=== PATIENT | female | born 1950 | race Caucasian/White ===

== ENCOUNTER 2024-07-24 20:55 | Inpatient (IN) | payer MEDICARE, OTHER ==
--- NOTE | 2024-07-24 23:51 | ERPHSYRPT ---
- History of Present Illness Time Seen by Provider: 07/24/24 21:57 Source: patient, family Exam Limitations: no limitations Patient Subjective Stated Complaint: family states that pt has a wound on her foot for approx 1 year from toe amputation that has not haled well. pt has open area to lt great toe area and since saturday has had a blister on the inner aspect of her lt foot that opened up today and is draining blood and white fluid. they were advised by hospice care nurse to come to the er. Triage Nursing Assessment: pt alert and oriented, answers questions approp. pt back to room per wheelchair and tansfers to stretcher with heavy assist of 1. pt has prosthetic to rt leg. drsg to lt foot. wound to lt great toe area with purulent drainage. open and raised area to medial lt mid foot with purulent drainage. 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 and few days ago a small blister appeared in the arch of the foot but gradually increasing in size and had some discharge. Patient is under hospice care and recently had wound culture done by wound clinic, patient is seen in [facility] ER today where she was prescribed Bactrim but patient wound culture showed she is not sensitive to any of the oral antibi otics but vancomycin, daptomycin and a couple of others. Hospice nurse sent her in this ER. Patient has no fever. She has not been taking most of her medication including insulin. She did notice some purulent drainage from the wound. Patient/family were unsure whether she wants to go for aggressive treatment or not and after prolonged discussion they decided to go for all workup. Allergies/Adverse Reactions: cefuroxime Allergy (Severe, Verified 07/25/24 00:16) roflumilast [From Daliresp] Allergy (Severe, Verified 07/25/24 00:16) Home Medications: Montelukast Sodium 10 mg [Singulair 10 MG] 10 mg PO DAILY 07/25/24 [History] Prednisone 5 mg [Deltasone 5 mg] 5 mg PO DAILY 07/25/24 [History] dilTIAZem HCL [Diltiazem 24Hr ER (Cd)] 120 mg PO DAILY 07/25/24 [History] Hx Tetanus, Diphtheria Vaccination/Date Given: No (unsure) Hx Influenza Vaccination/Date Given: Yes Hx Pneumococcal Vaccination/Date Given: No Immunizations Up to Date: No Travel Risk - International Travel Have you traveled outside of the country in past 3 weeks: No - Emerging Infectious Disease Are you exhibiting symptoms associated with any current EIDs: No - Review of Systems Constitutional: Fatigue, Weakness Eyes: No Symptoms Ears, Nose, & Throat: No Symptoms Respiratory: Cough, Dyspnea Cardiac: No Symptoms Genitourinary Symptoms: No Symptoms Musculoskeletal: Arthralgias Skin: Cellulitis, Induration, Skin Lesions Endocrine: No Symptoms Hematologic/Lymphatic: No Symptoms - Past Medical History Neurological History: Stroke Cardiac History: Arrhythmia, Coronary Artery Disease, Hypertension Respiratory History: CHF, COPD Endocrine Medical History: Diabetes Type II Musculoskeletal History: Arthritis Psycho-Social History: Anxiety Other Medical History: AAA- 6.2cm, afib, 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, raynauds - Past Surgical History Past Surgical History: Yes Female Surgical History: Section Other Surgical History: rt bka, lt mid foot amputation, vascular stent placement- lt external iliac artery - Social History Smoking Status: Former smoker Exposure to second hand smoke: No Drug Use: none - Social Determinants of Health Will the patient participate in the screening: Yes Do you worry about a steady place to live?: No Do you have any problems with any of the following?: No known problems In the past 12 months,have you had to go without utilities?: No Transportation Issues: No Has anyone in your support network made you feel unsafe?: No Have you or anyone in your house had to go without enough: No - Nursing Vital Signs Nursing Vital Signs: Initial Vital Signs Temperature 98.3 F 07/24/24 22:09 Pulse Rate 84 07/24/24 22:09 Respiratory Rate 18 07/24/24 22:09 Blood Pressure 181/76 07/24/24 22:09 O2 Sat by Pulse Oximetry 97 07/24/24 22:09 Pain Scale Pain Intensity 0 - Physical Exam General Appearance: no apparent distress, alert, cachetic Eye Exam: eyes nml inspection Ears, Nose, Throat Exam: normal ENT inspection Neck Exam: normal inspection, full range of motion Respiratory Exam: rhonchi, wheezing, No respiratory distress Cardiovascular Exam: regular rate/rhythm, normal heart sounds Gastrointestinal/Abdomen Exam: soft, normal bowel sounds, No tenderness Extremity Exam: normal range of motion, other (Amputations of all toes left foot, wound at the head of first metatarsal with slow oozing of serosanguineous. 2 x 2 cm area of swollen with some oozing purulent in the arch of foot. Diffuse erythema of the foot. Mild increased temperature. No tenderness.) Neurologic Exam: alert, oriented x 3, cooperative Skin Exam: normal color SpO2 Interpretation: O2 applied SpO2: 97 O2 Delivery: Nasal Cannula Ordered Tests: Medication Summary Discontinued Medications Generic Name Dose Route Start Last Admin Trade Name Freq PRN Reason Stop Dose Admin Acetaminophen 650 mg 07/25/24 04:06 Acetaminophen 650 Mg Supp.Rect ID 08/24/24 04:05 Q4H PRN PRN PAIN AND/OR FEVER Acetaminophen 650 mg 07/25/24 16:35 07/26/24 14:31 Acetaminophen 325 Mg Tablet PO 08/24/24 16:34 650 mg Q4H PRN PRN Administration PAIN AND/OR FEVER Hydrocodone Bitart/Acetaminophen 1 tablet 07/25/24 10:00 07/29/24 10:14 Hydrocodone/Acetamin 10-325 Mg Tablet PO 07/30/24 09:59 Not Given BID JEFF Albuterol Sulfate 4 puff 07/25/24 09:18 Albuterol Common Canister Inhaler 08/24/24 09:17 Q4H PRN PRN SHORTNESS OF BREATH/WHEEZING Albuterol Sulfate 2 puff 07/25/24 09:27 07/27/24 14:37 Albuterol Common Canister Inhaler 08/24/24 09:17 2 puff Q4H PRN PRN Administration SHORTNESS OF BREATH/WHEEZING Albuterol Sulfate 2.5 mg 07/25/24 19:00 07/29/24 06:54 Albuterol Sulfate 2.5 Mg/3 Ml [facility] 08/24/24 18:59 2.5 mg BIDRT JEFF Administration Albuterol/Ipratropium 3 ml 07/25/24 07:00 07/25/24 05:25 Ipratropium/Albuterol Sulfate 3 Ml Ampul.[facility] 08/24/24 06:59 3 ml Q6HRT JEFF Administration Bupivacaine HCl Confirm 07/25/24 06:43 Bupivacaine Hcl/Pf 150 Mg/30 Ml Vial Administered 07/25/24 06:44 Dose 150 mg .ROUTE .STK-MED ONE Bupivacaine HCl/Epinephrine Bitart Confirm 07/25/24 05:38 Bupivacaine Hcl/Epinephrine 10 Ml Vial Administered 07/25/24 05:39 Dose 30 ml .ROUTE .STK-MED ONE Device 1 07/27/24 09:30 07/27/24 13:41 Therapuetic Drug Level Monitor Each IJ 07/27/24 09:31 Not Given 1XONLY ONE Device 1 07/28/24 09:30 07/28/24 10:07 Therapuetic Drug Level Monitor Each IJ 07/28/24 09:31 Not Given 1XONLY ONE Dexmedetomidine/Sodium Chloride Confirm 07/25/24 06:24 Dexmedetomidine In 0.9 % Nacl 80 Mcg/20 Ml Vial Administered 07/25/24 06:25 Dose 80 mcg IV .STK-MED ONE Diltiazem HCl 120 mg 07/25/24 10:00 07/29/24 09:44 Diltiazem Hcl Cd 120 Mg Cap.Sr.24h PO 08/24/24 09:59 120 mg DAILY JEFF Administration Ferrous Sulfate 325 mg 07/27/24 10:00 07/29/24 09:44 Ferrous Sulfate 325 Mg Tablet PO 08/26/24 09:59 325 mg DAILY JEFF Administration Heparin Sodium (Beef Lung) 1,000 units 07/27/24 10:58 Heparin Lock Flush Pf 500 Units/5 Ml Syringe IV 07/27/24 10:59 .STK-MED ONE Heparin Sodium (Beef Lung) 500 units 07/27/24 19:21 07/29/24 04:30 Heparin Lock Flush Pf 500 Units/5 Ml Syringe PICC 08/26/24 19:20 500 units PRN PRN Administration IV PORT FLUSH Hydromorphone HCl 0.6 mg 07/25/24 14:01 Hydromorphone 1 Mg/1ml Inj IV 07/30/24 14:00 UD PRN PAIN Hydromorphone HCl 0.5 - 1 mg 07/25/24 14:09 07/28/24 18:38 Hydromorphone 1 Mg/1ml Inj IV 07/30/24 14:08 0.5 mg Q2HPRN PRN Administration PAIN 8 - 10 Vancomycin HCl 1 gm in 200 mls @ 125 mls/hr 07/24/24 23:31 07/25/24 00:25 Vancomycin 1 Gram/200 Ml Bag IV 07/25/24 01:06 125 mls/hr ONCE ONE 125 mls/hr Administration Piperacillin Sod/Tazobactam 100 mls @ 200 mls/hr 07/24/24 23:31 07/25/24 05:53 Sod 3.375 gm/ Sodium Chloride IV 07/25/24 00:00 Not Given STAT ONE Sodium Chloride Confirm 07/25/24 00:20 Sodium Chloride 0.9% Administered 07/25/24 00:21 Dose 100 mls @ ud .ROUTE .STK-MED ONE Vancomycin HCl Confirm 07/25/24 00:20 Vancomycin 1 Gram/200 Ml Bag Administered 07/25/24 00:21 Dose 1 gm in 200 mls @ ud IV .STK-MED ONE Meropenem 1 gm/ Sodium 100 mls @ 200 mls/hr 07/25/24 02:07 07/25/24 02:20 Chloride IV 07/25/24 02:36 200 mls/hr STAT ONE Administration Sodium Chloride 1,000 mls @ 100 mls/hr 07/25/24 02:15 07/25/24 02:20 Sodium Chloride 0.9% 1000 Ml IV 08/24/24 02:14 100 mls/hr .Q10H JEFF Administration Sodium Chloride Confirm 07/25/24 02:17 Sodium Chloride 100ml Mini-Bag Plus Administered 07/25/24 02:18 Dose 100 mls @ ud IV .STK-MED ONE Sodium Chloride 1,000 mls @ 50 mls/hr 07/25/24 04:15 07/28/24 16:30 Sodium Chloride 0.9% 1000 Ml IV 08/24/24 04:14 50 mls/hr .Q20H JEFF Administration Meropenem 500 mg/ Sodium 100 mls @ 200 mls/hr 07/25/24 14:00 Chloride IV 08/24/24 13:59 Q8HT JEFF Meropenem 1 gm/ Sodium 100 mls @ 200 mls/hr 07/25/24 10:00 07/29/24 09:45 Chloride IV 08/01/24 09:59 200 mls/hr Q12HT JEFF Administration Vancomycin HCl 500 mg/ Sodium 100 mls @ 125 mls/hr 07/25/24 09:45 07/25/24 11:29 Chloride IV 08/24/24 09:44 Not Given Q12H JEFF Vancomycin HCl 500 mg/ Sodium 100 mls @ 125 mls/hr 07/25/24 11:00 07/27/24 11:49 Chloride IV 07/28/24 13:00 125 mls/hr BID JEFF Administration Heparin Sodium/Sodium Chloride 500 mls @ ud 07/27/24 10:58 Heparin-Ns 1,000 Units/500 Ml IV 07/27/24 10:59 .STK-MED ONE Vancomycin HCl 500 mg/ Sodium 100 mls @ 100 mls/hr 07/27/24 18:00 07/29/24 09:45 Chloride IV 08/26/24 17:59 100 mls/hr Q8H JEFF Administration Insulin Human Lispro 0 unit 07/25/24 04:06 07/25/24 21:02 Insulin Lispro 1 Unit SQ 08/24/24 04:05 5 unit UD PRN Administration HYPERGLYCEMIA Insulin Human Lispro 0 unit 07/26/24 10:25 07/26/24 21:24 Insulin Lispro 1 Unit SQ 08/25/24 10:24 2 unit UD PRN Administration HYPERGLYCEMIA Lidocaine HCl Confirm 07/25/24 05:38 Lidocaine - Mpf 2% 5 Ml Vial Administered 07/25/24 05:39 Dose 5 ml .ROUTE .STK-MED ONE Lidocaine HCl Confirm 07/25/24 05:45 Lidocaine - Mpf 2% 5 Ml Vial Administered 07/25/24 05:46 Dose 5 ml .ROUTE .STK-MED ONE Lidocaine HCl Confirm 07/25/24 06:43 Lidocaine Hcl/Pf 1 % 30 Ml Pf Sdv Administered 07/25/24 06:44 Dose 30 ml IJ .STK-MED ONE Lorazepam mg 07/25/24 09:37 Lorazepam 2 Mg/1 Ml 2 Mg Vial SL 08/24/24 09:36 QID PRN PRN ANXIETY/AGITATION Lorazepam 0.25 mg 07/25/24 11:09 07/28/24 09:06 Lorazepam 0.5 Mg Tablet PO 08/24/24 11:08 0.25 mg Q6H PRN PRN Administration ANXIETY Meropenem Confirm 07/25/24 02:16 Meropenem 1 Gm Vial Administered 07/25/24 02:17 Dose 1 gm IV .STK-MED ONE Midazolam HCl Confirm 07/25/24 05:39 Midazolam Hcl 2 Mg/2 Ml Vial Administered 07/25/24 05:40 Dose 2 mg .ROUTE .STK-MED ONE Naloxone HCl 0.4 mg 07/25/24 09:38 Naloxone Hcl 0.4 Mg/Ml Ml IV 08/24/24 09:37 PRN PRN RESPIRATORY DEPRESSION Non-Formulary Medication 1 each 07/25/24 07:42 07/25/24 11:29 Pharmacy Dose Request: Vancomycin 1 Each IV 07/25/24 07:43 Not Given STAT STA Oxycodone/Acetaminophen 1.5 tab 07/25/24 14:08 07/29/24 09:44 Oxycodone Hcl/Apap 5 Mg/325 Mg Tablet PO 07/30/24 14:07 1.5 tab Q4HPRN PRN Administration PAIN 5-7 Pantoprazole Sodium 20 mg 07/27/24 10:00 07/29/24 09:44 Pantoprazole 20 Mg Tab PO 08/26/24 09:59 20 mg DAILY JEFF Administration Piperacillin Sod/Tazobactam Sod Confirm 07/25/24 00:18 Piperacillin/Tazobactam Sodium 3.375 Gm Vial Administered 07/25/24 00:19 Dose 3.375 gm IV .STK-MED ONE Potassium Bicarbonate 25 meq 07/25/24 09:45 07/25/24 16:40 Potassium Bicarbonate 25 Meq Tab PO 07/25/24 13:46 25 meq Q2H JEFF Administration Potassium Chloride 40 meq 07/29/24 05:55 07/29/24 06:05 Potassium Chloride Tab 10 Meq Tab PO 07/29/24 05:56 40 meq STAT ONE Administration Fluticasone/Salmeterol 2 puff 07/25/24 07:00 07/25/24 08:01 Fluticasone/Salmeterol 115/21 60 Puff Aer.W.Adap 08/24/24 06:59 Not Given BIDRT JEFF Tiotropium [place] 1 ea 07/26/24 10:00 07/29/24 06:54 Tiotropium [place] 18 Mcg/Cap Inhaler 08/25/24 09:59 1 ea DAILY JEFF Administration Lab/Rad Data: Laboratory Result Diagrams 07/25/24 08:40 07/25/24 08:40 Laboratory Results 07/25/24 07/25/24 07/25/24 Range/Units 08:40 08:40 08:40 WBC 12.7 H (3.98-10.04) x10^3/uL RBC 3.31 L (3.93-5.22) x10^6/uL Hgb 8.1 L (11.2-15.7) g/dL Hct 27.9 L (34.1-44.9) % MCV 84.3 (79.4-94.8) fL MCH 24.5 L (25.6-32.2) pg MCHC 29.0 L (32.2-35.5) g/dL RDW 17.3 H (11.7-14.4) % Plt Count 458 H (182-369) x10^3/uL MPV 9.5 (9.4-12.3) fL Gran % (34.0-71.1) % Immature Gran % (Auto) (0.001-0.429) % Nucleat RBC Rel Count (0.00-0.2) % Eos # (Auto) (0.04-0.36) x10^3/uL Immature Gran # (Auto) (0.001-0.031) x10^3u/L Absolute Lymphs (auto) (1.18-3.74) x10^3/uL Absolute Monos (auto) (0.24-0.86) x10^3/uL Absolute Nucleated RBC (0.00-0.012) x10^3u/L Lymphocytes % (19.3-51.7) % Monocytes % (4.7-12.5) % Eosinophils % (0.7-5.8) % Basophils % (0.1-1.2) % Absolute Granulocytes (1.56-6.13) x10^3/uL Basophils # (0.01-0.08) x10^3/uL Sodium 138 (135-145) mmol/L Potassium 3.4 L (3.5-5.1) mmol/L Chloride 107 (98-107) mmol/L Carbon Dioxide 25 (22-30) mmol/L Anion Gap 9.3 (5-15) MEQ/L BUN 6 L (7-17) mg/dL Creatinine 0.46 L (0.52-1.04) mg/dL Estimated GFR 99.1 ML/MIN Glucose 107 H (74-106) mg/dL Hemoglobin A1c 6.60 H (4.5-6.0) % Lactic Acid (0.4-2.0) Calcium 8.7 (8.4-10.2) mg/dL Total Bilirubin 0.40 (0.2-1.3) mg/dL AST 23 (14-36) U/L ALT 13 (0-35) U/L Alkaline Phosphatase 82 (38-126) U/L Creatine Kinase (30-135) U/L Serum Total Protein 6.0 L (6.3-8.2) g/dL Albumin 3.3 L (3.5-5.0) g/dL ABO Group Rh Factor Antibody Screen (NEGATIVE) Crossmatch (COMPATIBLE) 07/25/24 07/25/24 07/24/24 Range/Units 05:35 05:35 23:35 WBC (3.98-10.04) x10^3/uL RBC (3.93-5.22) x10^6/uL Hgb (11.2-15.7) g/dL Hct (34.1-44.9) % MCV (79.4-94.8) fL MCH (25.6-32.2) pg MCHC (32.2-35.5) g/dL RDW (11.7-14.4) % Plt Count (182-369) x10^3/uL MPV (9.4-12.3) fL Gran % (34.0-71.1) % Immature Gran % (Auto) (0.001-0.429) % Nucleat RBC Rel Count (0.00-0.2) % Eos # (Auto) (0.04-0.36) x10^3/uL Immature Gran # (Auto) (0.001-0.031) x10^3u/L Absolute Lymphs (auto) (1.18-3.74) x10^3/uL Absolute Monos (auto) (0.24-0.86) x10^3/uL Absolute Nucleated RBC (0.00-0.012) x10^3u/L Lymphocytes % (19.3-51.7) % Monocytes % (4.7-12.5) % Eosinophils % (0.7-5.8) % Basophils % (0.1-1.2) % Absolute Granulocytes (1.56-6.13) x10^3/uL Basophils # (0.01-0.08) x10^3/uL Sodium (135-145) mmol/L Potassium (3.5-5.1) mmol/L Chloride (98-107) mmol/L Carbon Dioxide (22-30) mmol/L Anion Gap (5-15) MEQ/L BUN (7-17) mg/dL Creatinine (0.52-1.04) mg/dL Estimated GFR ML/MIN Glucose (74-106) mg/dL Hemoglobin A1c (4.5-6.0) % Lactic Acid (0.4-2.0) Calcium (8.4-10.2) mg/dL Total Bilirubin (0.2-1.3) mg/dL AST (14-36) U/L ALT (0-35) U/L Alkaline Phosphatase (38-126) U/L Creatine Kinase 37 (30-135) U/L Serum Total Protein (6.3-8.2) g/dL Albumin (3.5-5.0) g/dL ABO Group AB Rh Factor POSITIVE Antibody Screen NEGATIVE (NEGATIVE) Crossmatch COMPATIBLE COMPATIBLE (COMPATIBLE) 07/24/24 07/24/24 07/24/24 Range/Units 23:35 23:35 23:29 WBC 16.0 H (3.98-10.04) x10^3/uL RBC 3.42 L (3.93-5.22) x10^6/uL Hgb 8.3 L (11.2-15.7) g/dL Hct 28.2 L (34.1-44.9) % MCV 82.5 (79.4-94.8) fL MCH 24.3 L (25.6-32.2) pg MCHC 29.4 L (32.2-35.5) g/dL RDW 17.4 H (11.7-14.4) % Plt Count 472 H (182-369) x10^3/uL MPV 10.2 (9.4-12.3) fL Gran % 75.1 H (34.0-71.1) % Immature Gran % (Auto) 0.5 H (0.001-0.429) % Nucleat RBC Rel Count 0.0 (0.00-0.2) % Eos # (Auto) 0.34 (0.04-0.36) x10^3/uL Immature Gran # (Auto) 0.08 H (0.001-0.031) x10^3u/L Absolute Lymphs (auto) 1.80 (1.18-3.74) x10^3/uL Absolute Monos (auto) 1.70 H (0.24-0.86) x10^3/uL Absolute Nucleated RBC 0.00 (0.00-0.012) x10^3u/L Lymphocytes % 11.3 L (19.3-51.7) % Monocytes % 10.6 (4.7-12.5) % Eosinophils % 2.1 (0.7-5.8) % Basophils % 0.4 (0.1-1.2) % Absolute Granulocytes 12.01 H (1.56-6.13) x10^3/uL Basophils # 0.06 (0.01-0.08) x10^3/uL Sodium 138 (135-145) mmol/L Potassium 3.5 (3.5-5.1) mmol/L Chloride 101 (98-107) mmol/L Carbon Dioxide 29 (22-30) mmol/L Anion Gap 10.7 (5-15) MEQ/L BUN 8 (7-17) mg/dL Creatinine 0.52 (0.52-1.04) mg/dL Estimated GFR 96.2 ML/MIN Glucose 118 H (74-106) mg/dL Hemoglobin A1c (4.5-6.0) % Lactic Acid 1.0 (0.4-2.0) Calcium 9.5 (8.4-10.2) mg/dL Total Bilirubin 0.40 (0.2-1.3) mg/dL AST 25 (14-36) U/L ALT 15 (0-35) U/L Alkaline Phosphatase 99 (38-126) U/L Creatine Kinase (30-135) U/L Serum Total Protein 6.7 (6.3-8.2) g/dL Albumin 3.6 (3.5-5.0) g/dL ABO Group Rh Factor Antibody Screen (NEGATIVE) Crossmatch (COMPATIBLE) - Progress Progress: improved Progress Note: 07/25/24 02:09 74 years old with multiple medical problems including chronic respiratory fail ure from COPD on 2 L oxygen, diabetes mellitus with below-knee amputation on the right and amputation of all toes on the left is evaluated for left foot swelling, wound and developing abscess. Workup showed white count of 16, chemistries fairly unremarkable She is given a dose of vancomycin and meropenem based on sensitivity reports from [facility]. I have obtained CT which showed finding consistent with cellulitis and small amount of air focus just proximal to toe amputation. No obvious gas gangrene. Discussed with Dr. Hood, reviewed history, workup and CT finding, agreed with continue with antibiotics and he will evaluate patient in few hours. Discussed with hospitalist Dr. Polo and patient is being admitted in consultation with podiatry. I have shared the results of workup with patient and family and plan of admission and possible surgical intervention which they understand and agree. Discussed with : Ariana, Other (Dr. Polo hospitalist and Dr. Hood podiatry) Counseled pt/family regarding: lab results, diagnosis, rad results Medical Desision Making - Independent Historian Additional History obtained from: Child - Discussion of managment Care discussed with:: specialist (Him Clerk Dr. Hood and hospitalist Dr. Polo) Reviewed:: Test results Agreed on:: Treatment plan, place in obs Will see patient: in hospital - Diagnostic Testing Diagnostic test were ordered, analyzed, and reviewed by me: Yes Radiological Interpretation: Reviewed by me, Teleradiologist Report - Risk of complications The pt has a mod risk of morbidity or mortality based on: Need for prescription drug management The pt has a high risk of morbidity or mortality based on: Need for major surgery in patient with known risk factors, Decision regarding hospitilization or escalation of hosp level of care - Departure Departure Disposition: Observation Clinical Impression: Cellulitis of foot associated with diabetes mellitus, Foot abscess, left Condition: Fair Critical Care Time: No
[2024-07-25] LABS: Absolute Neutrophil Ct (ANC) 12.01 x10^3/uL (1.56-6.13); BASOPHIL % 0.4 % (0.1-1.2); Basophil (Absolute #) 0.06 x10^3/uL (0.01-0.08); Eosinophil % 2.1 % (0.7-5.8); Eosinophil (Absolute #) 0.34 x10^3/uL (0.04-0.36); Hematocrit 28.2 % (34.1-44.9); Hemoglobin 8.3 g/dL (11.2-15.7); IMMATURE GRAN # 0.08 x10^3u/L (0.001-0.031); IMMATURE GRAN % 0.5 % (0.001-0.429); Lymphocytes % 11.3 % (19.3-51.7); Mean Cell Volume 82.5 fL (79.4-94.8); Mean Corpuscular Hemoglobin 24.3 pg (25.6-32.2); Mean Corpuscular Hgb Concent. 29.4 g/dL (32.2-35.5); Mean Platelet Volume 10.2 fL (9.4-12.3); Monocytes % 10.6 % (4.7-12.5); Neutrophil % 75.1 % (34.0-71.1); Platelet Count 472 x10^3/uL (182-369); Red Blood Count 3.42 x10^6/uL (3.93-5.22); Red Cell Distribution Width 17.4 % (11.7-14.4)
[2024-07-25] MEDS ORDERED: PIPERACILLIN/TAZOBACTAM IV ONE (00:18)
[2024-07-25] MEDS ORDERED: VANCOMYCIN 1 GRAM/200 ML BAG 1 GM/200 ML PIGGYBACK IV ONE (00:20)
[2024-07-25] MEDS ORDERED: Sodium Chloride 0.9% 0 ML ONE (00:20)
[2024-07-25] MEDS: VANCOMYCIN 1 GRAM/200 ML BAG 1 GM/200 ML PIGGYBACK IV ONE (00:25)
[2024-07-25 00:29] LABS: ALBUMIN 3.6 g/dL (3.5-5.0); ANION GAP 10.7 MEQ/L (5-15); BILIRUBIN,TOTAL 0.4 mg/dL (0.2-1.3); Calcium 9.5 mg/dL (8.4-10.2); Creatinine 1 0.52 mg/dL (0.52-1.04); EST GLOMERULAR FILTRATION RATE 96.2 ML/MIN; Potassium 3.5 mmol/L (3.5-5.1); Total Protein 6.7 g/dL (6.3-8.2)
--- NOTE | 2024-07-25 01:56 | XRAY ---
CLINICAL HISTORY: r/o gas gangrene osteomyelitis foot COMPARISON: None. TECHNIQUE: Contiguous axial CT images of lower extremity were obtained without intravenous contrast. Coronal and sagittal reconstructions were likewise performed and indicated to increase the sensitivity for detecting clinically relevant pathology. CT scan was performed according to ALARA (as low as reasonable achievable). FINDINGS: Visualized bones appears osteopenic and shows coarse trabecular pattern. Amputation of fifth toe just distal to distal diaphysis of fifth metatarsal. Amputation of 1st to 4th toe just distal to proximal midshaft of proximal phalanges. Diffuse edema is noted involving subcutaneous and intramuscular plane- suggest cellulitis. 5 X 1 cm hypodense lesion (likely collection) seen adjacent to the plantar aspect of great toe. Air focus also seen distally near amputation stump. No destructive osseous lesion. The visualized muscles and tendons appear grossly unremarkable. No cortical destruction to suggest osteomyelitis. No abscess formation. No significant joint effusion. There are no soft tissue masses. IMPRESSION: Visualized bones appears osteopenic and shows coarse trabecular pattern. Amputation of fifth toe just distal to distal diaphysis of fifth metatarsal. Amputation of 1st to 4th toe just distal to proximal midshaft of proximal phalanges. Diffuse edema is noted involving subcutaneous and intramuscular plane- suggest cellulitis. 5 X 1 cm hypodense lesion (likely collection) seen adjacent to the plantar aspect of great toe. Air focus also seen distally near amputation stump. Possibility of anaerobic infection/gas gangrene can not be ruled out. Advised clinical correlation and microbiological testing. Electronically Signed by: Serafin George MD. (07/25/2024 01:51:35 EST)
[2024-07-25] MEDS ORDERED: Merrem IV ONE (02:16)
[2024-07-25] MEDS ORDERED: Sodium Chloride 100ML MINI-BAG PLUS 100 ML IV ONE (02:17)
[2024-07-25] MEDS: Merrem 1 GM in Sodium Chloride 100ML MINI-BAG PLUS 100 ML IV ONE (02:20)
[2024-07-25] MEDS: Sodium Chloride 0.9% 1000 ML 1,000 ML IV SCH ×2 (02:20→09:37)
--- NOTE | 2024-07-25 02:35 | PCM.HP ---
History of Present Illness - Chief Complaint Chief Complaint: L foot cellulitis Date: 07/25/24 History of Present Illness: Ms. PEPPER is a 74 year old female with a past medical history significant for hypertension, diabetes with L foot ulcer status post multiple toe amputations, PAD status post R BKA and COPD/CHF under hospice services who was sent to the hospital by her hospice nurse after developing a blister on her left foot. She was evaluated by the ER and found to have significant cellulitis/abscess on CT left foot by the great toe with an elevated WBC of 16k. She was started on IV antibiotics with meropenem and vancomycin. Podiatry consult was obtained and she will be admitted for likely surgery. She is seen and examined via telehealth where she is resting in bed, lethargic but arousable. No fever/chills. No chest pain or shortness of breath. No nausea, vomiting or diarrhea. - Review of Systems Constitutional: No Fever, No Chills Eyes: No Vision Changes Ears, Nose, & Throat: No Sinus Drainage Respiratory: No Cough, No Orthopnea, No Short Of Breath Cardiac: No Chest Pain, No Edema, No Palpitations, No Syncope Abdominal/Gastrointestinal: No Abdominal Pain, No Nausea, No Vomiting, No Diarrhea Genitourinary Symptoms: No Dysuria, No Frequency, No Hematuria, No Urgency Musculoskeletal: No Myalgias Skin: Cellulitis, Rash Neurological: No Focal Weakness Psychological: No Suicidal Ideations Endocrine: No Polyuria, No Polydipsia Hematologic/Lymphatic: No Easy Bruising Medications & Allergies Home Medications: Home Medication List Montelukast Sodium 10 mg [Singulair 10 MG] 10 mg PO DAILY 07/25/24 [History Confirmed 07/25/24] Prednisone 5 mg [Deltasone 5 mg] 5 mg PO DAILY 07/25/24 [History Confirmed 07/25/24] dilTIAZem HCL [Diltiazem 24Hr ER (Cd)] 120 mg PO DAILY 07/25/24 [History Confirmed 07/25/24] Allergies/Adverse Reactions: Allergies Allergy/AdvReac Type Severity Reaction Status Date / Time cefuroxime Allergy Severe Verified 07/25/24 00:16 roflumilast [From Dalires] Allergy Severe Verified 07/25/24 00:16 - Past Medical History Neurological History: Stroke Cardiac History: Arrhythmia, Coronary Artery Disease, Hypertension Respiratory History: CHF, COPD Endocrine Medical History: Diabetes Type II Musculoskelatal History: Arthritis Pyscho-Social History: Anxiety Comment: AAA- 6.2cm, afib, 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, raynauds - Past Surgical History Past Surgical History: Yes Female Surgical History: Section Other Surgical History: rt bka, lt mid foot amputation, vascular stent placeme nt- lt external iliac artery - Social History Smoking Status: Former smoker Exposure to second hand smoke: No Alcohol: None Drug Use: none - Social Determinants of Health Will the patient participate in the screening: Yes Do you worry about a steady place to live?: No Do you have any problems with any of the following?: No known problems In the past 12 months,have you had to go without utilities?: No Have you or anyone in your house had to go without enough: No Transportation Issues: No Has anyone in your support network made you feel unsafe?: No - Physical Exam Vital Signs: Vital Signs - 24 hr Temp Pulse Resp BP Pulse Ox 07/25/24 02:14 97 07/25/24 02:00 90 18 127/75 98 07/25/24 01:00 94 H 18 134/78 98 07/25/24 00:00 83 18 147/66 98 07/24/24 23:15 84 22 170/84 96 07/24/24 22:09 98.3 F 84 18 181/76 97 General Appearance: no apparent distress Neurologic Exam: depressed mood/affect Ears, Nose, Throat Exam: dry mucous membranes Neck Exam: supple Respiratory Exam: No respiratory distress Cardiovascular Exam: regular rate/rhythm Gastrointestinal/Abdomen Exam: soft Extremity Exam: amputations, other Skin Exam: rash Results - Labs Lab/Micro Results: Lab Results-Last 24 Hours 07/24/24 07/24/24 07/24/24 Range/Units 23:29 23:35 23:35 WBC 16.0 H (3.98-10.04) x10^3/uL RBC 3.42 L (3.93-5.22) x10^6/uL Hgb 8.3 L (11.2-15.7) g/dL Hct 28.2 L (34.1-44.9) % MCV 82.5 (79.4-94.8) fL MCH 24.3 L (25.6-32.2) pg MCHC 29.4 L (32.2-35.5) g/dL RDW 17.4 H (11.7-14.4) % Plt Count 472 H (182-369) x10^3/uL MPV 10.2 (9.4-12.3) fL Gran % 75.1 H (34.0-71.1) % Immature Gran % (Auto) 0.5 H (0.001-0.429) % Nucleat RBC Rel Count 0.0 (0.00-0.2) % Eos # (Auto) 0.34 (0.04-0.36) x10^3/uL Immature Gran # (Auto) 0.08 H (0.001-0.031) x10^3u/L Absolute Lymphs (auto) 1.80 (1.18-3.74) x10^3/uL Absolute Monos (auto) 1.70 H (0.24-0.86) x10^3/uL Absolute Nucleated RBC 0.00 (0.00-0.012) x10^3u/L Lymphocytes % 11.3 L (19.3-51.7) % Monocytes % 10.6 (4.7-12.5) % Eosinophils % 2.1 (0.7-5.8) % Basophils % 0.4 (0.1-1.2) % Absolute Granulocytes 12.01 H (1.56-6.13) x10^3/uL Basophils # 0.06 (0.01-0.08) x10^3/uL Sodium 138 (135-145) mmol/L Potassium 3.5 (3.5-5.1) mmol/L Chloride 101 (98-107) mmol/L Carbon Dioxide 29 (22-30) mmol/L Anion Gap 10.7 (5-15) MEQ/L BUN 8 (7-17) mg/dL Creatinine 0.52 (0.52-1.04) mg/dL Estimated GFR 96.2 ML/MIN Glucose 118 H (74-106) mg/dL Lactic Acid 1.0 (0.4-2.0) Calcium 9.5 (8.4-10.2) mg/dL Total Bilirubin 0.40 (0.2-1.3) mg/dL AST 25 (14-36) U/L ALT 15 (0-35) U/L Alkaline Phosphatase 99 (38-126) U/L Creatine Kinase (30-135) U/L Serum Total Protein 6.7 (6.3-8.2) g/dL Albumin 3.6 (3.5-5.0) g/dL 07/24/24 Range/Units 23:35 WBC (3.98-10.04) x10^3/uL RBC (3.93-5.22) x10^6/uL Hgb (11.2-15.7) g/dL Hct (34.1-44.9) % MCV (79.4-94.8) fL MCH (25.6-32.2) pg MCHC (32.2-35.5) g/dL RDW (11.7-14.4) % Plt Count (182-369) x10^3/uL MPV (9.4-12.3) fL Gran % (34.0-71.1) % Immature Gran % (Auto) (0.001-0.429) % Nucleat RBC Rel Count (0.00-0.2) % Eos # (Auto) (0.04-0.36) x10^3/uL Immature Gran # (Auto) (0.001-0.031) x10^3u/L Absolute Lymphs (auto) (1.18-3.74) x10^3/uL Absolute Monos (auto) (0.24-0.86) x10^3/uL Absolute Nucleated RBC (0.00-0.012) x10^3u/L Lymphocytes % (19.3-51.7) % Monocytes % (4.7-12.5) % Eosinophils % (0.7-5.8) % Basophils % (0.1-1.2) % Absolute Granulocytes (1.56-6.13) x10^3/uL Basophils # (0.01-0.08) x10^3/uL Sodium (135-145) mmol/L Potassium (3.5-5.1) mmol/L Chloride (98-107) mmol/L Carbon Dioxide (22-30) mmol/L Anion Gap (5-15) MEQ/L BUN (7-17) mg/dL Creatinine (0.52-1.04) mg/dL Estimated GFR ML/MIN Glucose (74-106) mg/dL Lactic Acid (0.4-2.0) Calcium (8.4-10.2) mg/dL Total Bilirubin (0.2-1.3) mg/dL AST (14-36) U/L ALT (0-35) U/L Alkaline Phosphatase (38-126) U/L Creatine Kinase 37 (30-135) U/L Serum Total Protein (6.3-8.2) g/dL Albumin (3.5-5.0) g/dL - Radiology Impressions Radiology Exams & Impressions: Radiology Procedures Category Date Time Status LOWER EXTREMITY WO CONTRAST [CT] Stat Exams 07/24/24 23:29 Completed Assessment/Plan (1) Foot abscess, left Current Visit: Yes Status: Acute Assessment & Plan: CT scan demonstrates likely abscess next to L great toe 1. Admit to hospital 2. Start antibiotics with meropenem/Vanco 3. Podiatry consult 4. NPO for possible surgery 5. Pain control 6. DVT/GI prophylaxis Code(s): L02.612 - CUTANEOUS ABSCESS OF LEFT FOOT (2) Diabetic foot ulcer Current Visit: Yes Status: Acute Assessment & Plan: Diabetic foot ulcer 1. ADA diet when able to eat 2. FSBS q6 while NPO with SSI 3. Monitor blood sugars Code(s): E11.621 - TYPE 2 DIABETES MELLITUS WITH FOOT ULCER; L97.509 - NON- PRESSURE CHRONIC ULCER OTH PRT UNSP FOOT W UNSP SEVERITY (3) PAD (peripheral artery disease) Current Visit: Yes Status: Acute Assessment & Plan: Status post R BKA and likely contributing to L foot ulcer 1. Check arterial doppler LLE Code(s): I73.9 - PERIPHERAL VASCULAR DISEASE, UNSPECIFIED (4) Essential (primary) hypertension Current Visit: Yes Status: Acute Assessment & Plan: Blood pressure under reasonable control 1. Continue bp meds 2. Low Na diet 3. Monitor blood pressure readings Code(s): I10 - ESSENTIAL (PRIMARY) HYPERTENSION (5) COPD (chronic obstructive pulmonary disease) Current Visit: Yes Status: Acute Qualifiers: COPD type: unspecified COPD Qualified Code(s): J44.9 - Chronic obstructive pulmonary disease, unspecified Assessment & Plan: COPD stable 1. Duonebs 2. Monitor O2 sats Telemedicine Encounter - Telemedicine Encounter Telemedicine Encounter: "The entirety of this encounter was performed via Telemedicine" This visit was performed using real-time audio and video connection between my location and thepatients locationwith the assistance of a surrogateat the patients location. Written or verbal consent was obtained from the patient/guardian to perform this visit usingsynchronoustelemedicine technology. Any patient questions regarding the telemedicine interaction were answered.
[2024-07-25] MEDS ORDERED: FEVERALL 650 MG PR PRN (04:06)
--- NOTE | 2024-07-25 04:13 | PCM.CONS ---
Podiatry HPI - Consult Date of Consultation Date: 07/24/24 Reason for Consult: Gas gangrene, Acute on Chronic Osteomyelitis, DM Type II foot ulceration. 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 Patient was attending routine wound care through [facility]. A small blister appeared in the arch of the foot but gradually increasing in size and had some discharge over the course of the last several days.She did notice some purulent drainage from the wound. Patient recently had wound culture done by wound clinic, patient is seen in [facility] ER today where she was prescribed Bactrim but patient wound culture showed she is not sensitive to any of the oral antibiotics but vancomycin and daptomycin. Hospice nurse sent her in this ER. Patient has no fever. She has not been taking most of her medication including insulin. Patient is under hospice care however this was revoked by coming to the emergency department for treatment. Patient/family were unsure whether she wants to go for aggressive treatment or not and after prolonged discussion they decided to go for all workup. Medications & Allergies Home Medications: Home Medication List Hydrocodone/Acetaminophen [Stacy 10-325 mg] 1 tablet PO BID 07/25/24 [History Confirmed 07/25/24] LORazepam [Ativan] 0.5 ml SL Q2H/PRN PRN 07/25/24 [History Confirmed 07/25/24] Montelukast Sodium 10 mg [Singulair 10 MG] 10 mg PO DAILY 07/25/24 [History Confirmed 07/25/24] Prednisone 5 mg [Deltasone 5 mg] 5 mg PO DAILY 07/25/24 [History Confirmed 07/25/24] dilTIAZem HCL [Diltiazem 24Hr ER (Cd)] 120 mg PO DAILY 07/25/24 [History Confirmed 07/25/24] Allergies/Adverse Reactions: Allergies Allergy/AdvReac Type Severity Reaction Status Date / Time cefuroxime Allergy Severe Verified 07/25/24 00:16 roflumilast [From Daliresp] Allergy Severe Verified 07/25/24 00:16 - Past Medical History Neurological History: Stroke Cardiac History: Arrhythmia, Coronary Artery Disease, Hypertension Respiratory History: CHF, COPD Endocrine Medical History: Diabetes Type II Musculoskelatal History: Arthritis Pyscho-Social History: Anxiety Comment: AAA- 6.2cm, afib, 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, raynauds - Past Surgical History Past Surgical History: Yes Female Surgical History: Section Other Surgical History: rt bka, lt mid foot amputation, vascular stent placement- lt external iliac artery - Social History Smoking Status: Former smoker Exposure to second hand smoke: No Alcohol: None Drug Use: none - Social Determinants of Health Will the patient participate in the screening: Yes Do you worry about a steady place to live?: No Do you have any problems with any of the following?: No known problems In the past 12 months,have you had to go without utilities?: No Have you or anyone in your house had to go without enough: No Transportation Issues: No Has anyone in your support network made you feel unsafe?: No Physical Exam - General General Appearance: no apparent distress, cachetic - Neuro Neurologic: Epicritic and protopathic (absent) - Vascular Peripheral Pulses: Posterior tibialis: 1+, Dorsalis-Pedis: 1+ Capillary Refill Time: > 3 seconds Hair Growth: Symmetrical and Bilateral Varicosities: Negtive Edema: None Skin: Supple, not atrophic (Wounds distal 1st metatarsal ( hallux amputation site) Plantar aspect of arch large wound with purulence and proudflesh. raised margins by approximately 1 cm in purulent granuloma with fluctuance noted on palpation. No creptiation of underlying skin.) Skin Temperature: Warm to touch - Narrative Narrative Physical Exam: Podiatry Physical Exam Results - Labs Lab/Micro Results: Lab Results-Last 24 Hours 07/24/24 07/24/24 07/24/24 Range/Units 23:29 23:35 23:35 WBC 16.0 H (3.98-10.04) x10^3/uL RBC 3.42 L (3.93-5.22) x10^6/uL Hgb 8.3 L (11.2-15.7) g/dL Hct 28.2 L (34.1-44.9) % MCV 82.5 (79.4-94.8) fL MCH 24.3 L (25.6-32.2) pg MCHC 29.4 L (32.2-35.5) g/dL RDW 17.4 H (11.7-14.4) % Plt Count 472 H (182-369) x10^3/uL MPV 10.2 (9.4-12.3) fL Gran % 75.1 H (34.0-71.1) % Immature Gran % (Auto) 0.5 H (0.001-0.429) % Nucleat RBC Rel Count 0.0 (0.00-0.2) % Eos # (Auto) 0.34 (0.04-0.36) x10^3/uL Immature Gran # (Auto) 0.08 H (0.001-0.031) x10^3u/L Absolute Lymphs (auto) 1.80 (1.18-3.74) x10^3/uL Absolute Monos (auto) 1.70 H (0.24-0.86) x10^3/uL Absolute Nucleated RBC 0.00 (0.00-0.012) x10^3u/L Lymphocytes % 11.3 L (19.3-51.7) % Monocytes % 10.6 (4.7-12.5) % Eosinophils % 2.1 (0.7-5.8) % Basophils % 0.4 (0.1-1.2) % Absolute Granulocytes 12.01 H (1.56-6.13) x10^3/uL Basophils # 0.06 (0.01-0.08) x10^3/uL Sodium 138 (135-145) mmol/L Potassium 3.5 (3.5-5.1) mmol/L Chloride 101 (98-107) mmol/L Carbon Dioxide 29 (22-30) mmol/L Anion Gap 10.7 (5-15) MEQ/L BUN 8 (7-17) mg/dL Creatinine 0.52 (0.52-1.04) mg/dL Estimated GFR 96.2 ML/MIN Glucose 118 H (74-106) mg/dL Lactic Acid 1.0 (0.4-2.0) Calcium 9.5 (8.4-10.2) mg/dL Total Bilirubin 0.40 (0.2-1.3) mg/dL AST 25 (14-36) U/L ALT 15 (0-35) U/L Alkaline Phosphatase 99 (38-126) U/L Creatine Kinase (30-135) U/L Serum Total Protein 6.7 (6.3-8.2) g/dL Albumin 3.6 (3.5-5.0) g/dL 07/24/24 Range/Units 23:35 WBC (3.98-10.04) x10^3/uL RBC (3.93-5.22) x10^6/uL Hgb (11.2-15.7) g/dL Hct (34.1-44.9) % MCV (79.4-94.8) fL MCH (25.6-32.2) pg MCHC (32.2-35.5) g/dL RDW (11.7-14.4) % Plt Count (182-369) x10^3/uL MPV (9.4-12.3) fL Gran % (34.0-71.1) % Immature Gran % (Auto) (0.001-0.429) % Nucleat RBC Rel Count (0.00-0.2) % Eos # (Auto) (0.04-0.36) x10^3/uL Immature Gran # (Auto) (0.001-0.031) x10^3u/L Absolute Lymphs (auto) (1.18-3.74) x10^3/uL Absolute Monos (auto) (0.24-0.86) x10^3/uL Absolute Nucleated RBC (0.00-0.012) x10^3u/L Lymphocytes % (19.3-51.7) % Monocytes % (4.7-12.5) % Eosinophils % (0.7-5.8) % Basophils % (0.1-1.2) % Absolute Granulocytes (1.56-6.13) x10^3/uL Basophils # (0.01-0.08) x10^3/uL Sodium (135-145) mmol/L Potassium (3.5-5.1) mmol/L Chloride (98-107) mmol/L Carbon Dioxide (22-30) mmol/L Anion Gap (5-15) MEQ/L BUN (7-17) mg/dL Creatinine (0.52-1.04) mg/dL Estimated GFR ML/MIN Glucose (74-106) mg/dL Lactic Acid (0.4-2.0) Calcium (8.4-10.2) mg/dL Total Bilirubin (0.2-1.3) mg/dL AST (14-36) U/L ALT (0-35) U/L Alkaline Phosphatase (38-126) U/L Creatine Kinase 37 (30-135) U/L Serum Total Protein (6.3-8.2) g/dL Albumin (3.5-5.0) g/dL - Radiology Impressions Radiology Exams & Impressions: Radiology Procedures Category Date Time Status LOWER EXTREMITY WO CONTRAST [CT] Stat Exams 07/24/24 23:29 Completed - Other Procedures and Tests Respiratory Therapy 07/25/24 03:57 Oxygen Nasal Cannula 2 lpm Respiratory Therapy Consult ONCE Assessment/Plan (1) Acute on chronic osteomyelitis Current Visit: Yes Status: Acute Assessment & Plan: Initial patient examination and evaluation Radiographs and CT obtained demonstrating focus of gas at previous amputation site stump distal and plantar to the 1st metatarsal. Clinically patient is demonstrating local signs of infection with elevated WBC Given this criteria patient is candidate for proximal amputation at the level of the rearfoot. Vascular status will be assessed preoperative and formally postoperatively in order to assess wound healing potential. Given the distal extent of the infection will attempt some degree of salvage however a choparts or symes amputation is likely adequate. Patient is non ambulatory and the possibility of a below the knee amputation is not entirely excluded at this time. This procedure is best staged given clinical appearance NPO established Informed consent for open amputation right foot to the level of choparts vs symes. IV abx for vancomycin pharmacy to dose once patient reaches the floor. Cultures will also be obtained intra-operatively. Non weight bearing Pain control- largely neuropathic however PRN percocet 7.5 q4-6h for moderate pain. For severe pain IV dilaudad .6mg q2-4h Dressing change to be preformed with packing pulled post op day #1 and redressed with Iodine adaptic 4x4 abd kerlix and 4inch and 6 inch Westley. Will follow with you. Thank you for the consult. Code(s): M86.10 - OTHER ACUTE OSTEOMYELITIS, UNSPECIFIED SITE; M86.60 - OTHER CHRONIC OSTEOMYELITIS, UNSPECIFIED SITE (2) Gas gangrene Current Visit: Yes Status: Acute Code(s): A48.0 - GAS GANGRENE (3) Cellulitis of foot associated with diabetes mellitus Current Visit: Yes Status: Acute Code(s): E11.628 - TYPE 2 DIABETES MELLITUS WITH OTHER SKIN COMPLICATIONS; L03.119 - CELLULITIS OF UNSPECIFIED PART OF LIMB (4) Diabetic foot ulcer Current Visit: Yes Status: Acute Code(s): E11.621 - TYPE 2 DIABETES MELLITUS WITH FOOT ULCER; L97.509 - NON-PRESSURE CHRONIC ULCER OTH PRT UNSP FOOT W UNSP SEVERITY (5) Foot abscess, left Current Visit: Yes Status: Acute Code(s): L02.612 - CUTANEOUS ABSCESS OF LEFT FOOT
[2024-07-25] MEDS: DUONEB 0.5-3 MG/3 ml Neb IH SCH (05:25)
[2024-07-25] MEDS ORDERED: Marcaine 0.5%/Epinephrine 10 ML ONE (05:38)
[2024-07-25] MEDS ORDERED: Xylocaine-Mpf 2% 5 Ml Vial ONE ×2 (05:38→05:45)
[2024-07-25] MEDS ORDERED: Versed 2 MG/2 ML Injection ONE (05:39)
[2024-07-25] MEDS: PIPERACILLIN/TAZOBACTAM 3.375 GM in Sodium Chloride 100ML MINI-BAG PLUS 100 ML IV ONE (05:53)
[2024-07-25 06:14] LABS: ABO TYPING AB; Antibody Screen NEGATIVE (NEGATIVE); RH TYPING POSITIVE
[2024-07-25] MEDS ORDERED: DEXMEDETOMIDINE 80 MCG/20ML-NS IV ONE (06:24)
[2024-07-25] MEDS ORDERED: Xylocaine 1% Vial 30 ML PF IJ ONE (06:43)
[2024-07-25] MEDS ORDERED: Marcaine Mpf 0.5% Vial 30 Ml ONE (06:43)
[2024-07-25] MEDS: Advair Hfa 115/21 Common canister IH SCH (08:01)
[2024-07-25 08:44] LABS: Hematocrit 27.9 % (34.1-44.9); Hemoglobin 8.1 g/dL (11.2-15.7); Mean Cell Volume 84.3 fL (79.4-94.8); Mean Corpuscular Hemoglobin 24.5 pg (25.6-32.2); Mean Platelet Volume 9.5 fL (9.4-12.3); Platelet Count 458 x10^3/uL (182-369); Red Blood Count 3.31 x10^6/uL (3.93-5.22); Red Cell Distribution Width 17.3 % (11.7-14.4); White Blood Count 12.7 x10^3/uL (3.98-10.04)
[2024-07-25 09:03] LABS: ALBUMIN 3.3 g/dL (3.5-5.0); ANION GAP 9.3 MEQ/L (5-15); BILIRUBIN,TOTAL 0.4 mg/dL (0.2-1.3); Calcium 8.7 mg/dL (8.4-10.2); Creatinine 1 0.46 mg/dL (0.52-1.04); EST GLOMERULAR FILTRATION RATE 99.1 ML/MIN; Potassium 3.4 mmol/L (3.5-5.1)
[2024-07-25] MEDS ORDERED: VENTOLIN COMMON CANISTER IH PRN (09:18)
[2024-07-25] MEDS: VENTOLIN COMMON CANISTER IH PRN (09:30)
[2024-07-25] MEDS: Cardizem CD PO SCH (09:33)
[2024-07-25] MEDS ORDERED: Ativan 2 MG/1 ML VIAL SL PRN (09:37)
[2024-07-25] MEDS ORDERED: Narcan 0.4 MG/ML IV PRN (09:38)
[2024-07-25] MEDS: VANCOCIN 500 MG VIAL*** 500 MG in Sodium Chloride 100ML MINI-BAG PLUS 100 ML IV SCH ×2 (11:23→11:29)
[2024-07-25] MEDS: K-LYTE PO SCH (11:23)
[2024-07-25] MEDS: Merrem 1 GM in Sodium Chloride 100ML MINI-BAG PLUS 100 ML IV SCH (11:23)
[2024-07-25] MEDS: NORCO 10-325 MG PO SCH (11:24)
[2024-07-25] MEDS: PHARMACY DOSING REQUIRED: VANCOMYCIN IV STA (11:29)
[2024-07-25] MEDS: Ativan 0.5 MG PO PRN (12:06)
[2024-07-25] MEDS: HUMALOG SQ PRN (12:08)
[2024-07-25] MEDS ORDERED: MERREM 500 MG in Sodium Chloride 100ML MINI-BAG PLUS 100 ML IV SCH (14:00)
[2024-07-25] MEDS ORDERED: Hydromorphone 1 mg/ml Injection IV PRN (14:01)
[2024-07-25] MEDS: Hydromorphone 1 mg/ml Injection IV PRN (14:22)
[2024-07-25 14:46] LABS: MAGNESIUM 1.5 mg/dL (1.6-2.3); Potassium 3.7 mmol/L (3.5-5.1)
[2024-07-25] MEDS: PERCOCET TABLET 5/325MG PO PRN (16:43)
[2024-07-25] MEDS: PROVENTIL 2.5 MG/3 ML NEB IH SCH (19:24)
[2024-07-26 06:30] LABS: Absolute Neutrophil Ct (ANC) 18.42 x10^3/uL (1.56-6.13); BASOPHIL % 0.2 % (0.1-1.2); Basophil (Absolute #) 0.05 x10^3/uL (0.01-0.08); Eosinophil % 0.6 % (0.7-5.8); Eosinophil (Absolute #) 0.14 x10^3/uL (0.04-0.36); Hematocrit 23.2 % (34.1-44.9); IMMATURE GRAN # 0.18 x10^3u/L (0.001-0.031); IMMATURE GRAN % 0.8 % (0.001-0.429); Lymphocyte (Absolute #) 1.68 x10^3/uL (1.18-3.74); Lymphocytes % 7.1 % (19.3-51.7); Mean Corpuscular Hemoglobin 24.2 pg (25.6-32.2); Mean Corpuscular Hgb Concent. 28.4 g/dL (32.2-35.5); Mean Platelet Volume 10.4 fL (9.4-12.3); Monocyte (Absolute #) 3.33 x10^3/uL (0.24-0.86); Neutrophil % 77.3 % (34.0-71.1); Platelet Count 419 x10^3/uL (182-369); Red Blood Count 2.73 x10^6/uL (3.93-5.22); Red Cell Distribution Width 17.7 % (11.7-14.4); White Blood Count 23.8 x10^3/uL (3.98-10.04)
[2024-07-26 06:39] LABS: Hemoglobin 6.6 g/dL (11.2-15.7)
[2024-07-26 06:41] LABS: ALBUMIN 3.4 g/dL (3.5-5.0); ANION GAP 10.5 MEQ/L (5-15); BILIRUBIN,TOTAL 0.4 mg/dL (0.2-1.3); Calcium 8.8 mg/dL (8.4-10.2); Creatinine 1 0.5 mg/dL (0.52-1.04); EST GLOMERULAR FILTRATION RATE 97.1 ML/MIN; Potassium 4.2 mmol/L (3.5-5.1); Total Protein 6.3 g/dL (6.3-8.2)
[2024-07-26 08:08] LABS: CROSS MATCH (PRBC) COMPATIBLE (COMPATIBLE)
[2024-07-26 08:10] LABS: CROSS MATCH (PRBC) COMPATIBLE (COMPATIBLE)
--- NOTE | 2024-07-26 08:17 | XRAY ---
CLINICAL HISTORY: 3 view NWB portable foot COMPARISON: 07/24/2024 CT was reviewed. TECHNIQUE: CR of the left ankle/foot, 3 views. FINDINGS: Amputation of the left mid and forefoot is noted sparing the hindfoot. Gas locules and swelling is noted in the soft tissues. The visualized bones are osteoporotic. No obvious fractures in the visualized bones. No aggressive lytic lesions noted. IMPRESSION: 1. Amputation of the left mid and forefoot is noted sparing the hindfoot. 2. Gas locules and swelling is noted in the soft tissues (possibly post-surgical changes). Clinical correlation and follow up are advised to exclude the possibility of underlying gangrene or anaerobic infection. 3. Diffuse osteopenia. DISCLAIMER:A subtle bone abnormality or fracture may not be readily apparent on x-rays, thus clinical correlation and further imaging including follow up CT, MRI, or follow up x-rays are advised as needed. Electronically Signed by: Castro Xiao MD. (07/26/2024 08:13:23 EST)
--- NOTE | 2024-07-26 10:08 | PCM.NOTE ---
Date and Time: 07/26/24 0956 Subjective Assessment: 07/26/24 Ms. SALAS is a 74 year old female with a past medical history significant for hypertension, diabetes with L foot ulcer status post multiple toe amputations, PAD status post R BKA and COPD/CHF under hospice services who was sent to the hospital by her hospice nurse after developing a blister on her left foot on 07/25/24. She was evaluated by the ER and found to have significant cellulitis/abscess on CT left foot by the great toe with an elevated WBC of 16k. She was started on IV antibiotics with meropenem and vancomycin and continued IP. Podiatry consult was obtained and took to surgery from ER and then admitted. Per podiatry note she has acute on chronic osteomyelitis and gas gangrene. Open amputation right foot to the level of choparts vs symes completed in OR by podiatry. He explained wound is to be left open and he will re-eval Saturday. Wound and Blood cultures pending. Pt had a fever of 102.5 last night. She also had increase pain but is feeling better this AM. O2 was increased to 5lNC last night as she was requiring more pain pain meds and she also takes benzos for anxiety causing respiratory depression. Narcan ordered PRN. She is a DNR but has revoked Hospice at this time so she could be admitted. HGB 6.6 this AM and 2 units PRBC ordered. Per podiatry there was quit a bit of blood loss with procedure and she was anemic prior to this. Pt to have a PICC line placed tomorrow for OP antibiotics at D/C. She denies CP , Abd. pain, N/V/D. - Review of Systems Constitutional: No Fever, No Chills Eyes: No Symptoms Ears, Nose, & Throat: No Symptoms Respiratory: Short Of Breath, No Cough Cardiac: No Chest Pain, No Edema, No Syncope Abdominal/Gastrointestinal: No Abdominal Pain, No Nausea, No Vomiting, No Diarrh ea Genitourinary Symptoms: No Dysuria Musculoskeletal: No Back Pain, No Neck Pain Skin: Other (LLE pain / wrapped), No Rash Neurological: No Dizziness, No Focal Weakness, No Sensory Changes Psychological: No Symptoms Endocrine: No Symptoms Hematologic/Lymphatic: No Symptoms Immunological/Allergic: No Symptoms Objective Exam General Appearance: no apparent distress, alert, thin Neurologic Exam: alert, oriented x 3, cooperative, normal mood/affect, nml cerebellar function, sensation nml, No motor deficits Skin Exam: normal color, warm, dry Wound Assessment: Skin/Wound Assessment Wound/Incision Assessment Start: 07/25/24 04:00 Text: Status: Active Freq: Q6H Protocol: Document 07/26/24 04:00 KX (Rec: 07/26/24 04:12 KX [id number]) Wound/Incision Assessment Left Foot Wound Assessment Admission Wound Type Incision Drainage Amount Moderate Drainage Description Purulent Comment post op dressing in place per dr phelps- remains true at this time Wound Photo Photo Taken No Eye Exam: PERRL, EOMI, eyes nml inspection Ears, Nose, Throat Exam: normal ENT inspection, pharynx normal, moist mucous membranes Neck Exam: normal inspection, non-tender, supple, full range of motion Respiratory Exam: normal breath sounds, lungs clear, No respiratory distress Cardiovascular Exam: regular rate/rhythm, normal heart sounds Gastrointestinal/Abdomen Exam: soft, No tenderness, No mass Extremity Exam: normal inspection, normal range of motion, tenderness (LLE), other (LLE wrapped) Back Exam: normal inspection, normal range of motion, No CVA tenderness, No vertebral tenderness Pelvic Exam: deferred Rectal Exam: deferred Objective Data Vital Signs: Vital Signs - 24 hr Temp Pulse Resp BP Pulse Ox 07/26/24 07:00 99.7 F 100 H 25 H 134/67 94 L 07/26/24 03:00 99.1 F 91 H 18 125/58 94 L 07/25/24 23:28 98.3 F 84 16 115/56 92 L 07/25/24 19:36 97.1 F 101 H 26 H 131/59 97 07/25/24 19:25 92 H 20 98 07/25/24 16:39 102.5 F 116 H 26 H 115/72 94 L 07/25/24 14:17 121 H 22 92 L 07/25/24 12:30 98 F 113 H 20 140/93 93 L 07/25/24 11:32 97.5 F 90 20 135/60 100 07/25/24 10:34 99 H 19 114/55 96 07/25/24 10:00 97.5 F 98 H 20 129/60 96 Pain Assessment - Last Documented Pain Intensity 8 Pain Scale Used 0-10 Pain Scale Intake and Output: Intake & Output 07/23/24 07/24/24 07/25/24 07/26/24 11:59 11:59 11:59 11:59 Intake Total 340 1838 Output Total 1000 Balance 340 838 Weight 42.1 kg Lab Results: Lab Results-Last 24 Hours 07/25/24 07/25/24 07/25/24 Range/Units 05:35 05:35 11:29 WBC (3.98-10.04) x10^3/uL RBC (3.93-5.22) x10^6/uL Hgb (11.2-15.7) g/dL Hct (34.1-44.9) % MCV (79.4-94.8) fL MCH (25.6-32.2) pg MCHC (32.2-35.5) g/dL RDW (11.7-14.4) % Plt Count (182-369) x10^3/uL MPV (9.4-12.3) fL Gran % (34.0-71.1) % Immature Gran % (Auto) (0.001-0.429) % Nucleat RBC Rel Count (0.00-0.2) % Eos # (Auto) (0.04-0.36) x10^3/uL Immature Gran # (Auto) (0.001-0.031) x10^3u/L Absolute Lymphs (auto) (1.18-3.74) x10^3/uL Absolute Monos (auto) (0.24-0.86) x10^3/uL Absolute Nucleated RBC (0.00-0.012) x10^3u/L Lymphocytes % (19.3-51.7) % Monocytes % (4.7-12.5) % Eosinophils % (0.7-5.8) % Basophils % (0.1-1.2) % Absolute Granulocytes (1.56-6.13) x10^3/uL Basophils # (0.01-0.08) x10^3/uL Sodium (135-145) mmol/L Potassium (3.5-5.1) mmol/L Chloride (98-107) mmol/L Carbon Dioxide (22-30) mmol/L Anion Gap (5-15) MEQ/L BUN (7-17) mg/dL Creatinine (0.52-1.04) mg/dL Estimated GFR ML/MIN Glucose (74-106) mg/dL POC Glucometer 161 H (74 to 106) mg/dL Calcium (8.4-10.2) mg/dL Magnesium (1.6-2.3) mg/dL Total Bilirubin (0.2-1.3) mg/dL AST (14-36) U/L ALT (0-35) U/L Alkaline Phosphatase (38-126) U/L Serum Total Protein (6.3-8.2) g/dL Albumin (3.5-5.0) g/dL ABO Group AB Rh Factor POSITIVE Antibody Screen NEGATIVE (NEGATIVE) Crossmatch COMPATIBLE COMPATIBLE (COMPATIBLE) 07/25/24 07/25/24 07/25/24 Range/Units 14:25 16:17 20:53 WBC (3.98-10.04) x10^3/uL RBC (3.93-5.22) x10^6/uL Hgb (11.2-15.7) g/dL Hct (34.1-44.9) % MCV (79.4-94.8) fL MCH (25.6-32.2) pg MCHC (32.2-35.5) g/dL RDW (11.7-14.4) % Plt Count (182-369) x10^3/uL MPV (9.4-12.3) fL Gran % (34.0-71.1) % Immature Gran % (Auto) (0.001-0.429) % Nucleat RBC Rel Count (0.00-0.2) % Eos # (Auto) (0.04-0.36) x10^3/uL Immature Gran # (Auto) (0.001-0.031) x10^3u/L Absolute Lymphs (auto) (1.18-3.74) x10^3/uL Absolute Monos (auto) (0.24-0.86) x10^3/uL Absolute Nucleated RBC (0.00-0.012) x10^3u/L Lymphocytes % (19.3-51.7) % Monocytes % (4.7-12.5) % Eosinophils % (0.7-5.8) % Basophils % (0.1-1.2) % Absolute Granulocytes (1.56-6.13) x10^3/uL Basophils # (0.01-0.08) x10^3/uL Sodium (135-145) mmol/L Potassium 3.7 (3.5-5.1) mmol/L Chloride (98-107) mmol/L Carbon Dioxide (22-30) mmol/L Anion Gap (5-15) MEQ/L BUN (7-17) mg/dL Creatinine (0.52-1.04) mg/dL Estimated GFR ML/MIN Glucose (74-106) mg/dL POC Glucometer 149 H 212 H (74 to 106) mg/dL Calcium (8.4-10.2) mg/dL Magnesium 1.5 L (1.6-2.3) mg/dL Total Bilirubin (0.2-1.3) mg/dL AST (14-36) U/L ALT (0-35) U/L Alkaline Phosphatase (38-126) U/L Serum Total Protein (6.3-8.2) g/dL Albumin (3.5-5.0) g/dL ABO Group Rh Factor Antibody Screen (NEGATIVE) Crossmatch (COMPATIBLE) 07/26/24 07/26/24 07/26/24 Range/Units 06:27 06:27 06:27 WBC 23.8 H (3.98-10.04) x10^3/uL RBC 2.73 L (3.93-5.22) x10^6/uL Hgb 6.6 L* (11.2-15.7) g/dL Hct 23.2 L (34.1-44.9) % MCV 85.0 (79.4-94.8) fL MCH 24.2 L (25.6-32.2) pg MCHC 28.4 L (32.2-35.5) g/dL RDW 17.7 H (11.7-14.4) % Plt Count 419 H (182-369) x10^3/uL MPV 10.4 (9.4-12.3) fL Gran % 77.3 H (34.0-71.1) % Immature Gran % (Auto) 0.8 H (0.001-0.429) % Nucleat RBC Rel Count 0.0 (0.00-0.2) % Eos # (Auto) 0.14 (0.04-0.36) x10^3/uL Immature Gran # (Auto) 0.18 H (0.001-0.031) x10^3u/L Absolute Lymphs (auto) 1.68 (1.18-3.74) x10^3/uL Absolute Monos (auto) 3.33 H (0.24-0.86) x10^3/uL Absolute Nucleated RBC 0.00 (0.00-0.012) x10^3u/L Lymphocytes % 7.1 L (19.3-51.7) % Monocytes % 14.0 H (4.7-12.5) % Eosinophils % 0.6 L (0.7-5.8) % Basophils % 0.2 (0.1-1.2) % Absolute Granulocytes 18.42 H (1.56-6.13) x10^3/uL Basophils # 0.05 (0.01-0.08) x10^3/uL Sodium 136 (135-145) mmol/L Potassium 4.2 (3.5-5.1) mmol/L Chloride 104 (98-107) mmol/L Carbon Dioxide 26 (22-30) mmol/L Anion Gap 10.5 (5-15) MEQ/L BUN 9 (7-17) mg/dL Creatinine 0.50 L (0.52-1.04) mg/dL Estimated GFR 97.1 ML/MIN Glucose 144 H (74-106) mg/dL POC Glucometer (74 to 106) mg/dL Calcium 8.8 (8.4-10.2) mg/dL Magnesium 1.7 (1.6-2.3) mg/dL Total Bilirubin 0.40 (0.2-1.3) mg/dL AST 23 (14-36) U/L ALT 14 (0-35) U/L Alkaline Phosphatase 82 (38-126) U/L Serum Total Protein 6.3 (6.3-8.2) g/dL Albumin 3.4 L (3.5-5.0) g/dL ABO Group Rh Factor Antibody Screen (NEGATIVE) Crossmatch (COMPATIBLE) 01/19/25 Range/Units 07:11 WBC (3.98-10.04) x10^3/uL RBC (3.93-5.22) x10^6/uL Hgb (11.2-15.7) g/dL Hct (34.1-44.9) % MCV (79.4-94.8) fL MCH (25.6-32.2) pg MCHC (32.2-35.5) g/dL RDW (11.7-14.4) % Plt Count (182-369) x10^3/uL MPV (9.4-12.3) fL Gran % (34.0-71.1) % Immature Gran % (Auto) (0.001-0.429) % Nucleat RBC Rel Count (0.00-0.2) % Eos # (Auto) (0.04-0.36) x10^3/uL Immature Gran # (Auto) (0.001-0.031) x10^3u/L Absolute Lymphs (auto) (1.18-3.74) x10^3/uL Absolute Monos (auto) (0.24-0.86) x10^3/uL Absolute Nucleated RBC (0.00-0.012) x10^3u/L Lymphocytes % (19.3-51.7) % Monocytes % (4.7-12.5) % Eosinophils % (0.7-5.8) % Basophils % (0.1-1.2) % Absolute Granulocytes (1.56-6.13) x10^3/uL Basophils # (0.01-0.08) x10^3/uL Sodium (135-145) mmol/L Potassium (3.5-5.1) mmol/L Chloride (98-107) mmol/L Carbon Dioxide (22-30) mmol/L Anion Gap (5-15) MEQ/L BUN (7-17) mg/dL Creatinine (0.52-1.04) mg/dL Estimated GFR ML/MIN Glucose (74-106) mg/dL POC Glucometer 126 H (74 to 106) mg/dL Calcium (8.4-10.2) mg/dL Magnesium (1.6-2.3) mg/dL Total Bilirubin (0.2-1.3) mg/dL AST (14-36) U/L ALT (0-35) U/L Alkaline Phosphatase (38-126) U/L Serum Total Protein (6.3-8.2) g/dL Albumin (3.5-5.0) g/dL ABO Group Rh Factor Antibody Screen (NEGATIVE) Crossmatch (COMPATIBLE) Radiology Exams: Radiology Procedures Category Date Time Status FOOT (MINIMUM 3 VIEWS) Routine Exams 07/26/24 07:00 Completed LOWER EXTREMITY WO CONTRAST [CT] Stat Exams 07/24/24 23:29 Completed PICC LINE PLACEMENT Routine Exams 07/27/24 09:40 Ordered Assessment/Plan (1) Acute on chronic osteomyelitis Current Visit: Yes Status: Acute Assessment & Plan: - Podiatry consulted - Merrem and vancomycin IV - CT LLE reviewed - XR Left foot reviewed - Narcotic pain control PRN- Narcan PRN - Prostat 64 - CBC, CMP reviewed - Fever 102.5 last night - WC and BC x2 pending - WBC 23.8 today - IVF - PICC to be placed tomorrow for OP antibiotics - POD #2 open amputation right foot to the level of choparts vs symes. - Per podiatry: Initial patient examination and evaluation Radiographs and CT obtained demonstrating focus of gas at previous amputation site stump distal and plantar to the 1st metatarsal. Clinically patient is demonstrating local signs of infection with elevated WBC Given this criteria patient is candidate for proximal amputation at the level of the rearfoot. Vascular status will be assessed preoperative and formally postoperatively in order to assess wound healing potential. Given the distal extent of the infection will attempt some degree of salvage however a choparts or symes amputation is likely adequate. Patient is non ambulatory and the possibility of a below the knee amputation is not entirely excluded at this time. This procedure is best staged given clinical appearance NPO established Informed consent for open amputation right foot to the level of choparts vs symes. IV abx for vancomycin pharmacy to dose once patient reaches the floor. Cultures will also be obtained intra-operatively. Non weight bearing Pain control- largely neuropathic however PRN percocet 7.5 q4-6h for moderate pain. For severe pain IV dilaudad .6mg q2-4h Dressing change to be preformed with packing pulled post op day #1 and redressed with Iodine adaptic 4x4 abd kerlix and 4inch and 6 inch [place]. Code(s): M86.10 - OTHER ACUTE OSTEOMYELITIS, UNSPECIFIED SITE; M86.60 - OTHER CHRONIC OSTEOMYELITIS, UNSPECIFIED SITE (2) Anemia Current Visit: Yes Status: Acute Assessment & Plan: - acute on chronic - Hgb 6.6 today- 2 units PRBC ordered- trend - Iron labs - 2:2 Surgery yesterday Code(s): D64.9 - ANEMIA, UNSPECIFIED (3) Diabetic foot ulcer Current Visit: Yes Status: Acute Assessment & Plan: - see above plan Code(s): E11.621 - TYPE 2 DIABETES MELLITUS WITH FOOT ULCER; L97.509 - NON- PRESSURE CHRONIC ULCER OTH PRT UNSP FOOT W UNSP SEVERITY (4) Cellulitis of foot associated with diabetes mellitus Current Visit: Yes Status: Acute Assessment & Plan: -see above plan - glucose control for better wound healing Code(s): E11.628 - TYPE 2 DIABETES MELLITUS WITH OTHER SKIN COMPLICATIONS; L03.119 - CELLULITIS OF UNSPECIFIED PART OF LIMB (5) Foot abscess, left Current Visit: Yes Status: Acute Assessment & Plan: - POD day #2 from surgery - see osteomyelitis plan above. Code(s): L02.612 - CUTANEOUS ABSCESS OF LEFT FOOT (6) Gas gangrene Current Visit: Yes Status: Acute Assessment & Plan: - Per podiatry evaluation- see plan above Code(s): A48.0 - GAS GANGRENE (7) Peripheral neuropathy Current Visit: Yes Status: Chronic Assessment & Plan: - Not currently on any meds for this. - Discuss with podiatry and consider gabapentin. Code(s): G62.9 - POLYNEUROPATHY, UNSPECIFIED (8) CHF (congestive heart failure) Current Visit: Yes Status: Chronic Assessment & Plan: - Not in acute exacerbation - Continue home meds - No current echo to review Code(s): I50.9 - HEART FAILURE, UNSPECIFIED (9) Type II diabetes mellitus Current Visit: Yes Status: Chronic Qualifiers: Diabetes mellitus terminal computer operator insulin use: without prison use Diabetes mellitus complication status: with circulatory complication Diabetes mellitus complication detail: with peripheral angiopathy with gangrene Qualified Code(s): E11.52 - Type 2 diabetes mellitus with diabetic peripheral angiopathy with gangrene Assessment & Plan: -A1C 6.60- controlled - Carb consistent diet - accuchecks ac/hs - humalog s/s low dose (10) COPD (chronic obstructive pulmonary disease) Current Visit: Yes Status: Chronic Qualifiers: COPD type: unspecified COPD Qualified Code(s): J44.9 - Chronic obstructive pulmonary disease, unspecified Assessment & Plan: - Was on Hospice for end stage COPD - [place] at night - Baseline 2lNC, on 5lNC currently- 94% - Spiriva, ventolin inhalers (11) Essential (primary) hypertension Current Visit: Yes Status: Chronic Assessment & Plan: - BP stable - continue home med Code(s): I10 - ESSENTIAL (PRIMARY) HYPERTENSION (12) PAD (peripheral artery disease) Current Visit: Yes Status: Chronic Assessment & Plan: - chronic Code(s): I73.9 - PERIPHERAL VASCULAR DISEASE, UNSPECIFIED (13) Underweight (BMI < 18.5) Current Visit: Yes Status: Chronic Assessment & Plan: - BMI 16.4 - nutritional consult - high protein ensure with each meal Code(s): R63.6 - UNDERWEIGHT; Z68.1 - BODY MASS INDEX [BMI] 19.9 OR LESS, ADULT (14) Anxiety Current Visit: Yes Status: Chronic Assessment & Plan: - Continue Ativan PO - Pt takes SL ativan at home- we do not carry med here. Code(s): F41.9 - ANXIETY DISORDER, UNSPECIFIED (15) Hospice care patient Current Visit: Yes Status: Chronic Assessment & Plan: - Revoked since came to hospital for treatment of left foot wound - For end stage COPD - Consider restarting at d/c- discuss with case management VTE: none PPI: protonix Next of KIN: Child- Ashley Salas [phone] D/C plan: 2-3 days Code status: SCO/DNR Code(s): Z51.5 - ENCOUNTER FOR PALLIATIVE CARE
[2024-07-26] MEDS: Spiriva 18 Mcg/Cap Inhaler IH SCH (11:21)
[2024-07-26 13:58] LABS: Slide Review 1 YES
[2024-07-26] MEDS: TYLENOL 325 MG PO PRN (14:31)
[2024-07-26 17:03] LABS: Hematocrit 31.6 % (34.1-44.9)
[2024-07-26 17:04] LABS: Hemoglobin 10.1 g/dL (11.2-15.7)
[2024-07-26 17:25] LABS: Iron 46 ug/dL (37-170); Iron Saturation 14 % (20-39); TIBC 320 ug/dL (265-462)
[2024-07-26 18:23] LABS: Ferritin 46.3 ng/mL (11.1-264); Folate (Folic Acid) 11.9 ng/mL (2.76 - >20)
[2024-07-26] MEDS: HUMALOG SQ PRN (21:24)
[2024-07-27 05:06] LABS: Hematocrit 32.8 % (34.1-44.9); Hemoglobin 10.2 g/dL (11.2-15.7); Mean Cell Volume 83.2 fL (79.4-94.8); Mean Corpuscular Hemoglobin 25.9 pg (25.6-32.2); Mean Corpuscular Hgb Concent. 31.1 g/dL (32.2-35.5); Mean Platelet Volume 9.4 fL (9.4-12.3); Platelet Count 351 x10^3/uL (182-369); Red Blood Count 3.94 x10^6/uL (3.93-5.22); Red Cell Distribution Width 15.9 % (11.7-14.4)
--- NOTE | 2024-07-27 05:23 | PCM.NOTE ---
Date and Time: 07/27/24 0518 Subjective Assessment: Ms. SALAS is a 74 year old female with a past medical history significant for hypertension, diabetes with L foot ulcer status post multiple toe amputations, PAD status post R BKA and COPD/CHF under hospice services who was sent to the hospital by her hospice nurse after developing a blister on her left foot on 07/25/24. She was evaluated by the ER and found to have significant cellulitis/abscess on CT left foot by the great toe with an elevated WBC of 16k. She was started on IV antibiotics with meropenem and vancomycin and continued IP. Podiatry consult was obtained and took to surgery from ER and then admitted. Per podiatry note she has acute on chronic osteomyelitis and gas gangrene. Closed amputation left foot to the level of choparts. Wound and Blood cultures pending. Oxygen requirements increased to 5lNC last night as she was requiring more pain pain meds and she also takes benzos for anxiety causing respiratory depression. Narcan ordered PRN. She is a DNR but has revoked Hospice at this time so she could be admitted. PICC to be placed. Continue Merrem and vancomycin. 07/27: No overnight events noted. PICC to be placed today. Endorses pain to the LLE at 5/10 on numerical pain scale. No other complaints voiced. Plan to continue Merrem and vancomycin pending final culture results. - Review of Systems Constitutional: No Symptoms Eyes: No Symptoms Ears, Nose, & Throat: No Symptoms Respiratory: Short Of Breath Cardiac: No Symptoms Abdominal/Gastrointestinal: No Symptoms Genitourinary Symptoms: No Symptoms Musculoskeletal: Other (LLE pain 5/10) Neurological: No Symptoms Psychological: No Symptoms Endocrine: No Symptoms Hematologic/Lymphatic: No Symptoms Immunological/Allergic: No Symptoms Objective Exam General Appearance: no apparent distress Neurologic Exam: alert, oriented x 3, cooperative Skin Exam: pale Wound Assessment: Skin/Wound Assessment Wound/Incision Assessment Start: 07/25/24 04:00 Text: Status: Active Freq: Q6H Protocol: Document 07/27/24 02:00 AK (Rec: 07/27/24 02:19 AK [id number]) Wound/Incision Assessment Left Foot Wound Assessment Shift Assessment Wound Type Incision Wound Stage Non Pressure Wound Dressing Status Dry & Intact Primary Dressing Elastic Bandage Comment KYREE wound - bulky dressing CDI Wound Photo Photo Taken No Eye Exam: PERRL Ears, Nose, Throat Exam: normal ENT inspection Neck Exam: normal inspection Respiratory Exam: diminished breath sounds, crackles/rales Cardiovascular Exam: regular rate/rhythm, normal heart sounds Gastrointestinal/Abdomen Exam: soft, normal bowel sounds Extremity Exam: amputations (RBKA L foot amputation- covered in surgical dressing) Back Exam: normal inspection Objective Data Vital Signs: Vital Signs - 24 hr Temp Pulse Resp BP Pulse Ox 07/27/24 04:00 94 H 16 92 L 07/26/24 23:00 98.1 F 96 H 16 120/91 96 07/26/24 20:03 96 H 20 93 L 07/26/24 19:27 98.9 F 95 H 25 H 144/62 96 07/26/24 16:39 85 20 96 07/26/24 16:22 98.0 F 84 18 119/58 95 07/26/24 13:56 98.0 F 108 H 18 146/65 96 07/26/24 12:20 97.7 F 92 H 108/53 07/26/24 11:50 98.4 F 99 H 142/63 07/26/24 11:32 99.1 F 104 H 142/65 07/26/24 11:21 98 H 22 96 07/26/24 10:23 98.2 F 113 H 132/63 07/26/24 09:15 98.3 F 107 H 137/70 07/26/24 08:15 99.3 F 105 H 131/62 07/26/24 07:14 108 H 24 95 07/26/24 07:00 99.7 F 100 H 25 H 134/67 94 L Pain Assessment - Last Documented Pain Intensity 0 Pain Scale Used 0-10 Pain Scale Intake and Output: Intake & Output 07/24/24 07/25/24 07/26/24 07/27/24 11:59 11:59 11:59 11:59 Intake Total 340 1958 1529 Output Total 1750 Balance 096 840 1217 Weight 42.1 kg Lab Results: Lab Results-Last 24 Hours 07/25/24 07/25/24 07/26/24 Range/Units 05:35 05:35 06:27 WBC 23.8 H (3.98-10.04) x10^3/uL RBC 2.73 L (3.93-5.22) x10^6/uL Hgb 6.6 L* (11.2-15.7) g/dL Hct 23.2 L (34.1-44.9) % MCV 85.0 (79.4-94.8) fL MCH 24.2 L (25.6-32.2) pg MCHC 28.4 L (32.2-35.5) g/dL RDW 17.7 H (11.7-14.4) % Plt Count 419 H (182-369) x10^3/uL MPV 10.4 (9.4-12.3) fL Gran % 77.3 H (34.0-71.1) % Immature Gran % (Auto) 0.8 H (0.001-0.429) % Nucleat RBC Rel Count 0.0 (0.00-0.2) % Eos # (Auto) 0.14 (0.04-0.36) x10^3/uL Immature Gran # (Auto) 0.18 H (0.001-0.031) x10^3u/L Absolute Lymphs (auto) 1.68 (1.18-3.74) x10^3/uL Absolute Monos (auto) 3.33 H (0.24-0.86) x10^3/uL Absolute Nucleated RBC 0.00 (0.00-0.012) x10^3u/L Lymphocytes % 7.1 L (19.3-51.7) % Monocytes % 14.0 H (4.7-12.5) % Eosinophils % 0.6 L (0.7-5.8) % Basophils % 0.2 (0.1-1.2) % Absolute Granulocytes 18.42 H (1.56-6.13) x10^3/uL Basophils # 0.05 (0.01-0.08) x10^3/uL Sodium (135-145) mmol/L Potassium (3.5-5.1) mmol/L Chloride (98-107) mmol/L Carbon Dioxide (22-30) mmol/L Anion Gap (5-15) MEQ/L BUN (7-17) mg/dL Creatinine (0.52-1.04) mg/dL Estimated GFR ML/MIN Glucose (74-106) mg/dL POC Glucometer (74 to 106) mg/dL Calcium (8.4-10.2) mg/dL Magnesium (1.6-2.3) mg/dL Iron (37-170) ug/dL TIBC (265-462) ug/dL Iron Saturation (20-39) % Ferritin (11.1-264) ng/mL Total Bilirubin (0.2-1.3) mg/dL AST (14-36) U/L ALT (0-35) U/L Alkaline Phosphatase (38-126) U/L Serum Total Protein (6.3-8.2) g/dL Albumin (3.5-5.0) g/dL Vitamin B12 (239-931) pg/mL Folic Acid (2.76 - >20) ng/mL Slides for Path Review YES ABO Group AB Rh Factor POSITIVE Antibody Screen NEGATIVE (NEGATIVE) Crossmatch COMPATIBLE COMPATIBLE (COMPATIBLE) 07/26/24 07/26/24 07/26/24 Range/Units 06:27 06:27 07:11 WBC (3.98-10.04) x10^3/uL RBC (3.93-5.22) x10^6/uL Hgb (11.2-15.7) g/dL Hct (34.1-44.9) % MCV (79.4-94.8) fL MCH (25.6-32.2) pg MCHC (32.2-35.5) g/dL RDW (11.7-14.4) % Plt Count (182-369) x10^3/uL MPV (9.4-12.3) fL Gran % (34.0-71.1) % Immature Gran % (Auto) (0.001-0.429) % Nucleat RBC Rel Count (0.00-0.2) % Eos # (Auto) (0.04-0.36) x10^3/uL Immature Gran # (Auto) (0.001-0.031) x10^3u/L Absolute Lymphs (auto) (1.18-3.74) x10^3/uL Absolute Monos (auto) (0.24-0.86) x10^3/uL Absolute Nucleated RBC (0.00-0.012) x10^3u/L Lymphocytes % (19.3-51.7) % Monocytes % (4.7-12.5) % Eosinophils % (0.7-5.8) % Basophils % (0.1-1.2) % Absolute Granulocytes (1.56-6.13) x10^3/uL Basophils # (0.01-0.08) x10^3/uL Sodium 136 (135-145) mmol/L Potassium 4.2 (3.5-5.1) mmol/L Chloride 104 (98-107) mmol/L Carbon Dioxide 26 (22-30) mmol/L Anion Gap 10.5 (5-15) MEQ/L BUN 9 (7-17) mg/dL Creatinine 0.50 L (0.52-1.04) mg/dL Estimated GFR 97.1 ML/MIN Glucose 144 H (74-106) mg/dL POC Glucometer 126 H (74 to 106) mg/dL Calcium 8.8 (8.4-10.2) mg/dL Magnesium 1.7 (1.6-2.3) mg/dL Iron (37-170) ug/dL TIBC (265-462) ug/dL Iron Saturation (20-39) % Ferritin (11.1-264) ng/mL Total Bilirubin 0.40 (0.2-1.3) mg/dL AST 23 (14-36) U/L ALT 14 (0-35) U/L Alkaline Phosphatase 82 (38-126) U/L Serum Total Protein 6.3 (6.3-8.2) g/dL Albumin 3.4 L (3.5-5.0) g/dL Vitamin B12 (239-931) pg/mL Folic Acid (2.76 - >20) ng/mL Slides for Path Review ABO Group Rh Factor Antibody Screen (NEGATIVE) Crossmatch (COMPATIBLE) 07/26/24 07/26/24 07/26/24 Range/Units 11:14 16:04 17:01 WBC (3.98-10.04) x10^3/uL RBC (3.93-5.22) x10^6/uL Hgb (11.2-15.7) g/dL Hct (34.1-44.9) % MCV (79.4-94.8) fL MCH (25.6-32.2) pg MCHC (32.2-35.5) g/dL RDW (11.7-14.4) % Plt Count (182-369) x10^3/uL MPV (9.4-12.3) fL Gran % (34.0-71.1) % Immature Gran % (Auto) (0.001-0.429) % Nucleat RBC Rel Count (0.00-0.2) % Eos # (Auto) (0.04-0.36) x10^3/uL Immature Gran # (Auto) (0.001-0.031) x10^3u/L Absolute Lymphs (auto) (1.18-3.74) x10^3/uL Absolute Monos (auto) (0.24-0.86) x10^3/uL Absolute Nucleated RBC (0.00-0.012) x10^3u/L Lymphocytes % (19.3-51.7) % Monocytes % (4.7-12.5) % Eosinophils % (0.7-5.8) % Basophils % (0.1-1.2) % Absolute Granulocytes (1.56-6.13) x10^3/uL Basophils # (0.01-0.08) x10^3/uL Sodium (135-145) mmol/L Potassium (3.5-5.1) mmol/L Chloride (98-107) mmol/L Carbon Dioxide (22-30) mmol/L Anion Gap (5-15) MEQ/L BUN (7-17) mg/dL Creatinine (0.52-1.04) mg/dL Estimated GFR ML/MIN Glucose (74-106) mg/dL POC Glucometer 189 H 128 H (74 to 106) mg/dL Calcium (8.4-10.2) mg/dL Magnesium (1.6-2.3) mg/dL Iron (37-170) ug/dL TIBC (265-462) ug/dL Iron Saturation (20-39) % Ferritin 46.3 (11.1-264) ng/mL Total Bilirubin (0.2-1.3) mg/dL AST (14-36) U/L ALT (0-35) U/L Alkaline Phosphatase (38-126) U/L Serum Total Protein (6.3-8.2) g/dL Albumin (3.5-5.0) g/dL Vitamin B12 624 (239-931) pg/mL Folic Acid 11.9 (2.76 - >20) ng/mL Slides for Path Review ABO Group Rh Factor Antibody Screen (NEGATIVE) Crossmatch (COMPATIBLE) 07/26/24 07/26/24 07/26/24 Range/Units 17:01 17:01 21:09 WBC (3.98-10.04) x10^3/uL RBC (3.93-5.22) x10^6/uL Hgb 10.1 L D (11.2-15.7) g/dL Hct 31.6 L (34.1-44.9) % MCV (79.4-94.8) fL MCH (25.6-32.2) pg MCHC (32.2-35.5) g/dL RDW (11.7-14.4) % Plt Count (182-369) x10^3/uL MPV (9.4-12.3) fL Gran % (34.0-71.1) % Immature Gran % (Auto) (0.001-0.429) % Nucleat RBC Rel Count (0.00-0.2) % Eos # (Auto) (0.04-0.36) x10^3/uL Immature Gran # (Auto) (0.001-0.031) x10^3u/L Absolute Lymphs (auto) (1.18-3.74) x10^3/uL Absolute Monos (auto) (0.24-0.86) x10^3/uL Absolute Nucleated RBC (0.00-0.012) x10^3u/L Lymphocytes % (19.3-51.7) % Monocytes % (4.7-12.5) % Eosinophils % (0.7-5.8) % Basophils % (0.1-1.2) % Absolute Granulocytes (1.56-6.13) x10^3/uL Basophils # (0.01-0.08) x10^3/uL Sodium (135-145) mmol/L Potassium (3.5-5.1) mmol/L Chloride (98-107) mmol/L Carbon Dioxide (22-30) mmol/L Anion Gap (5-15) MEQ/L BUN (7-17) mg/dL Creatinine (0.52-1.04) mg/dL Estimated GFR ML/MIN Glucose (74-106) mg/dL POC Glucometer 215 H (74 to 106) mg/dL Calcium (8.4-10.2) mg/dL Magnesium (1.6-2.3) mg/dL Iron 46 (37-170) ug/dL TIBC 320 (265-462) ug/dL Iron Saturation 14 L (20-39) % Ferritin (11.1-264) ng/mL Total Bilirubin (0.2-1.3) mg/dL AST (14-36) U/L ALT (0-35) U/L Alkaline Phosphatase (38-126) U/L Serum Total Protein (6.3-8.2) g/dL Albumin (3.5-5.0) g/dL Vitamin B12 (239-931) pg/mL Folic Acid (2.76 - >20) ng/mL Slides for Path Review ABO Group Rh Factor Antibody Screen (NEGATIVE) Crossmatch (COMPATIBLE) 07/27/24 Range/Units 05:00 WBC 21.0 H (3.98-10.04) x10^3/uL RBC 3.94 (3.93-5.22) x10^6/uL Hgb 10.2 L (11.2-15.7) g/dL Hct 32.8 L (34.1-44.9) % MCV 83.2 (79.4-94.8) fL MCH 25.9 (25.6-32.2) pg MCHC 31.1 L (32.2-35.5) g/dL RDW 15.9 H (11.7-14.4) % Plt Count 351 (182-369) x10^3/uL MPV 9.4 (9.4-12.3) fL Gran % (34.0-71.1) % Immature Gran % (Auto) (0.001-0.429) % Nucleat RBC Rel Count (0.00-0.2) % Eos # (Auto) (0.04-0.36) x10^3/uL Immature Gran # (Auto) (0.001-0.031) x10^3u/L Absolute Lymphs (auto) (1.18-3.74) x10^3/uL Absolute Monos (auto) (0.24-0.86) x10^3/uL Absolute Nucleated RBC (0.00-0.012) x10^3u/L Lymphocytes % (19.3-51.7) % Monocytes % (4.7-12.5) % Eosinophils % (0.7-5.8) % Basophils % (0.1-1.2) % Absolute Granulocytes (1.56-6.13) x10^3/uL Basophils # (0.01-0.08) x10^3/uL Sodium (135-145) mmol/L Potassium (3.5-5.1) mmol/L Chloride (98-107) mmol/L Carbon Dioxide (22-30) mmol/L Anion Gap (5-15) MEQ/L BUN (7-17) mg/dL Creatinine (0.52-1.04) mg/dL Estimated GFR ML/MIN Glucose (74-106) mg/dL POC Glucometer (74 to 106) mg/dL Calcium (8.4-10.2) mg/dL Magnesium (1.6-2.3) mg/dL Iron (37-170) ug/dL TIBC (265-462) ug/dL Iron Saturation (20-39) % Ferritin (11.1-264) ng/mL Total Bilirubin (0.2-1.3) mg/dL AST (14-36) U/L ALT (0-35) U/L Alkaline Phosphatase (38-126) U/L Serum Total Protein (6.3-8.2) g/dL Albumin (3.5-5.0) g/dL Vitamin B12 (239-931) pg/mL Folic Acid (2.76 - >20) ng/mL Slides for Path Review ABO Group Rh Factor Antibody Screen (NEGATIVE) Crossmatch (COMPATIBLE) Radiology Exams: Radiology Procedures Category Date Time Status FOOT (MINIMUM 3 VIEWS) Routine Exams 07/26/24 07:00 Completed PICC LINE PLACEMENT Routine Exams 07/27/24 09:40 Ordered Assessment/Plan (1) Acute on chronic osteomyelitis Current Visit: Yes Status: Acute Assessment & Plan: - Podiatry consulted - Closed amputation left foot to the level of choparts completed in OR by podiatry. - Merrem and vancomycin IV - CT LLE reviewed - XR Left foot reviewed - Narcotic pain control PRN- Narcan PRN - Prostat 64 - CBC, CMP reviewed -WBC down-trending at 21.0<23.8- monitor - WC with gram + ID - BC x2 pending NGTD - IVF - PICC pending for OP ABX - POD #3 closed amputation right foot to the level of choparts Pain control- largely neuropathic however PRN percocet 7.5 q4-6h for moderate pain. For severe pain IV dilaudad .6mg q2-4h Dressing change to be preformed with packing pulled post op day #1 and redressed with Iodine adaptic 4x4 abd kerlix and 4inch and 6 inch Westley. Code(s): M86.10 - OTHER ACUTE OSTEOMYELITIS, UNSPECIFIED SITE; M86.60 - OTHER CHRONIC OSTEOMYELITIS, UNSPECIFIED SITE (2) Anemia Current Visit: Yes Status: Acute Assessment & Plan: - acute on chronic - Hgb 6.6 07/26/24- 2 units PRBC ordered- trend - Iron labs reviewed - iron saturation at 15% start ferrous sulfate -Hgb reviewed at 10.2- stable Code(s): D64.9 - ANEMIA, UNSPECIFIED (3) Cellulitis of foot associated with diabetes mellitus Current Visit: Yes Status: Acute Assessment & Plan: -see above plan - Good glycemic control for optimal wound healing Code(s): E11.628 - TYPE 2 DIABETES MELLITUS WITH OTHER SKIN COMPLICATIONS; L03.119 - CELLULITIS OF UNSPECIFIED PART OF LIMB (4) Diabetic foot ulcer Current Visit: Yes Status: Acute Assessment & Plan: -see above plan Code(s): E11.621 - TYPE 2 DIABETES MELLITUS WITH FOOT ULCER; L97.509 - NON- PRESSURE CHRONIC ULCER OTH PRT UNSP FOOT W UNSP SEVERITY (5) Foot abscess, left Current Visit: Yes Status: Acute Assessment & Plan: - POD day #3 from surgery - see osteomyelitis plan above. Code(s): L02.612 - CUTANEOUS ABSCESS OF LEFT FOOT (6) Gas gangrene Current Visit: Yes Status: Acute Assessment & Plan: - Per podiatry evaluation- see plan above Code(s): A48.0 - GAS GANGRENE (7) Anxiety Current Visit: Yes Status: Chronic Assessment & Plan: - Continue Ativan PO Code(s): F41.9 - ANXIETY DISORDER, UNSPECIFIED (8) CHF (congestive heart failure) Current Visit: Yes Status: Chronic Assessment & Plan: - Not in acute exacerbation - Continue home meds - No current echo to review Code(s): I50.9 - HEART FAILURE, UNSPECIFIED (9) COPD (chronic obstructive pulmonary disease) Current Visit: Yes Status: Chronic Qualifiers: COPD type: unspecified COPD Qualified Code(s): J44.9 - Chronic obstructive pulmonary disease, unspecified Assessment & Plan: - End stage COPD previously on Hospice prior to this admission - Bipap at night - Baseline 2lNC, on 5lNC currently- - Spiriva, ventolin inhalers (10) Essential (primary) hypertension Current Visit: Yes Status: Chronic Assessment & Plan: - BP stable - continue home med Code(s): I10 - ESSENTIAL (PRIMARY) HYPERTENSION (11) Hospice care patient Current Visit: Yes Status: Chronic Assessment & Plan: - Revoked with admission for treatment of left foot wound - end stage COPD - Consider restarting at d/c- discuss with case management Code(s): Z51.5 - ENCOUNTER FOR PALLIATIVE CARE (12) PAD (peripheral artery disease) Current Visit: Yes Status: Chronic Assessment & Plan: -noted - adds complexity Code(s): I73.9 - PERIPHERAL VASCULAR DISEASE, UNSPECIFIED (13) Peripheral neuropathy Current Visit: Yes Status: Chronic Assessment & Plan: - No home meds - could benefit from gabapentin Code(s): G62.9 - POLYNEUROPATHY, UNSPECIFIED (14) Type II diabetes mellitus Current Visit: Yes Status: Chronic Qualifiers: Diabetes mellitus half-way insulin use: without terminal gauger use Diabetes mellitus complication status: with circulatory complication Diabetes mellitus complication detail: with peripheral angiopathy with gangrene Qualified Code(s): E11.52 - Type 2 diabetes mellitus with diabetic peripheral angiopathy with gangrene Assessment & Plan: -A1C 6.60 - ADA diet - accuchecks ac/hs - humalog s/s low dose (15) Underweight (BMI < 18.5) Current Visit: Yes Status: Chronic Assessment & Plan: - BMI 16.4 - nutritional consult - high protein ensure with each meal VTE: none PPI: protonix Next of KIN: Child- Ashley Salas [phone] D/C plan: 2-3 days Code status: SCO/DNR Code(s): R63.6 - UNDERWEIGHT; Z68.1 - BODY MASS INDEX [BMI] 19.9 OR LESS, ADULT
[2024-07-27 05:53] LABS: ALBUMIN 3.3 g/dL (3.5-5.0); ANION GAP 7.9 MEQ/L (5-15); BILIRUBIN,TOTAL 0.6 mg/dL (0.2-1.3); Calcium 9.2 mg/dL (8.4-10.2); Creatinine 1 0.48 mg/dL (0.52-1.04); EST GLOMERULAR FILTRATION RATE 98.1 ML/MIN; Potassium 3.6 mmol/L (3.5-5.1); Total Protein 6.4 g/dL (6.3-8.2)
[2024-07-27 06:03] LABS: INR 0.96 (0.8-3.0); PROTIME 10.5 SECONDS (9.4-12.5); PTT 28.4 SECONDS (25.1-36.5)
[2024-07-27] MEDS: FEOSOL 325 MG PO SCH (08:40)
[2024-07-27] MEDS: Protonix 20MG Tablet PO SCH (08:40)
--- NOTE | 2024-07-27 08:57 | OP ---
SURGERY DATE/TIME: 07/25/2024 [id number] PREOPERATIVE DIAGNOSES: 1) Left foot gas gangrene. 2) Left foot [id number] osteomyelitis. 3) Left foot pain. 4) Diabetes mellitus, uncontrolled. 5) Peripheral neuropathy. 6) Diabetic foot ulceration. 7) Chronic obstructive pulmonary disease. 8) Hospice. POSTOPERATIVE DIAGNOSES: 1) Left foot gas gangrene. 2) Left foot [id number] osteomyelitis. 3) Left foot pain. 4) Diabetes mellitus, uncontrolled. 5) Peripheral neuropathy. 6) Diabetic foot ulceration. 7) Chronic obstructive pulmonary disease. 8) Hospice. PROCEDURE: 1) Incision and drainage with bone debridement, left foot. 2) Chopart's amputation, left foot. 3) Intrinsic muscle flap. SURGEON: Erwin Alexis DPM DIRECTOR WORKERS COMPENSATION: Ale Lincoln, Student, Surgical Coiler Operator. ANESTHESIA: Regional block with light monitored anesthesia care. See Anesthesia report for details. HEMOSTASIS: Esmarch around the ankle for approximately 25 total tourniquet minutes. ESTIMATED BLOOD LOSS: Approximately 40 mL. MATERIALS: 2-0 Monocryl, 3-0 nylon. INJECTABLES: See Anesthesia report for details. An additional 10 mL of 1% lidocaine plain was injected at the posterior tibial nerve distribution intraoperatively. INDICATIONS: The patient is a very pleasant 74-year-old female accompanied by her daughter, who presents today in the Emergency Department for a chronic wound that has acutely become infected. Patient has had some increasing pain. This ulceration has been present for over [address] scan was obtained, demonstrating some soft tissue emphysema at the plantar aspect of the foot. Given patient is on Hospice, she had to revoke her Hospice in order to come to the hospital today for treatment. Discussion was held with the family in regards to opting for treatment at this time and options in relationship to treatment. Given that this is a gas case and patient is showing some clinical and microbiological indications of a pending severe infection, discussion was held and options were discussed for an amputation. At this time, patient understands all risks, complications and benefits of surgical intervention at this time including, but not limited to, infection, hematoma, seroma, possibility of delayed wound healing, non wound healing, possibility of failure of surgical intervention, possible worsening of the situation, possible loss of limb and possible loss of life. No guarantees have been provided as to the outcome. In respects to the patient's current situation, we have decided to do a single staged procedure in order to get the best possible outcome if this method does work, which in hopes will negate the need for a second stage. If it does look like there is failure of the procedure, the next recommended procedure would be a below-knee amputation. Patient has been made aware of this and is in agreement. Plenty of time was allowed for the patient and her daughter to ask questions, which were answered to her apparent satisfaction. It is at this time we decided to proceed. DESCRIPTION OF PROCEDURE AND FINDINGS: The patient was brought into the PACU prior to the procedure and provided a popliteal and saphenous block. See Anesthesia report for detail. Following this, the patient was brought into the operating room, placed on the operating room table in the supine position. Monitored anesthesia care was administered until the patient was adequately sedated. On starting the procedure, patient did feel the marker, which was used for incision planning and decision was made to utilize 10 mL of lidocaine plain at the level of the posterior tibial nerve. After several minutes, the patient's pain relented, and decision was made to proceed with the Chopart's amputation. This was performed utilizing a 10 blade, which was full-thickness fishmouth incision, saving more dorsal skin and less plantar skin. Decision was made to make the incision as distal as possible on the plantar aspect in order to harvest the intrinsic muscles. From that standpoint, once incision was carried out, disarticulation of the midfoot to the level of the Chopart's joint was performed. Once this was performed, the pathological specimens were handed off the field for pathological assessment. Following this, the intrinsic muscle was harvested and the plantar aspect of the infected skin was resected, leaving a large dorsal flap, a small plantar flap, the intrinsic musculature intact and bone. Copious amounts of sterile saline were utilized to flush the surgical site. From that standpoint, a curette and rongeur were utilized to take samples of the talus and calcaneus for pathological assessment and clean margins. Once this was performed, gloves were changed and the drape was once again changed. The previously harvested intrinsic muscle flap was then sutured to the periosteum of the talus. Once secured, utilizing 2-0 Vicryl in a simple interrupted and a trauma-type suture fashion, the skin was closed in a layered-type fashion utilizing 2-0 Vicryl in a simple buried interrupted type fashion and 3-0 nylon in a horizontal mattress-type fashion. Any dog ears that were encountered were corrected and sutured. At this time, the Esmarch was let down at approximately 25 total tourniquet minutes. Total blood loss at that time was measured to approximately 40 mL. The leg was cleansed utilizing sterile saline and a dry lap. Once this was performed, iodine, Adaptic, 4 x 4, ABD and Westley was applied to the left lower extremity. Patient was then reversed from anesthesia and returned to the postoperative anesthesia care unit with vital signs stable and vascular status intact. The patient handled the anesthesia, as well as the procedure without significant complication. Postoperative orders as indicated in the patient's discharge chart.
--- NOTE | 2024-07-27 11:57 | XRAY ---
Indication: Ultrasound guidance for PICC line placement. Initial sonographic imaging of the right upper extremity was performed for localization of patent veins. A patent basilic vein identified above the elbow. Ultrasound guidance was then used for PICC line insertion. Full PICC line insertion is reported separately
--- NOTE | 2024-07-27 12:01 | XRAY ---
Indication: Long-term IV access and therapy for left foot infection. Informed consent obtained. Patient was placed on the fluoroscopic table in a supine position. Initial sonographic imaging of the right upper extremity was performed for localization of patent veins. The right upper extremity was then prepped and draped in sterile fashion. Tourniquet applied. 1% lidocaine plain used for local anesthesia. Using ultrasound guidance and a micropuncture needle, a basilic vein above the elbow was successfully percutaneously cannulized. A floppy tip 0.018 guidewire inserted. Tourniquet released. Needle was exchanged for a 5 Armenian dilator peel away sheath catheter. Ultimately a 5 Armenian double-lumen PICC line was inserted over a longer 0.018 guidewire. Catheter and guidewire further advanced and positioned in the distal SVC using fluoroscopic guidance. Guidewire removed. Both ports flushed with heparinized saline. Catheter was secured. Postoperative instructions and orders given. Patient discharged in good condition. Impression: Technically successful right upper extremity PICC line placement using ultrasound and fluoroscopic guidance. No immediate complications. Approximately 2 cc blood loss. Approximately 0.2 minute of fluoroscopy used. Catheter length is 34 cm.
[2024-07-27] MEDS: TROUGH DRUG LEVELS IJ ONE (13:41)
--- NOTE | 2024-07-27 14:47 | XRAY ---
Indication: half-way placement. Comparison: None Portable chest demonstrates COPD with minimal bibasilar subsegmental atelectasis/scarring. No focal infiltrate, consolidation, or large effusion. Heart not enlarged with right arm PICC line tip projecting SVC. Bony thorax intact with osteopenia and mild degenerative changes. Impression: Nonacute chest with chronic features.
--- NOTE | 2024-07-27 16:06 | PCM.NOTE ---
Date and Time: 07/27/24 1603 Subjective Assessment: POD #2 s/p choparts amputation. Patient states pain better under control at this time. Denies any constitutional symptoms of infection Physical Exam - Narrative Narrative Physical Exam: Podiatry Physical Exam Objective Data Vital Signs: Vital Signs - 24 hr Temp Pulse Resp BP Pulse Ox 07/27/24 14:40 86 18 90 L 07/27/24 11:53 97.5 F 84 16 116/60 93 L 07/27/24 07:15 98.0 F 114 H 16 150/75 92 L 07/27/24 05:21 98 H 18 95 07/27/24 04:00 94 H 16 92 L 07/26/24 23:00 98.1 F 96 H 16 120/91 96 07/26/24 20:03 96 H 20 93 L 07/26/24 19:27 98.9 F 95 H 25 H 144/62 96 07/26/24 16:39 85 20 96 07/26/24 16:22 98.0 F 84 18 119/58 95 Pain Assessment - Last Documented Pain Intensity 8 Pain Scale Used 0-10 Pain Scale Intake and Output: Intake & Output 07/25/24 07/26/24 07/27/24 07/28/24 11:59 11:59 11:59 11:59 Intake Total 340 1958 1529 350 Output Total 1750 Balance 996 312 7081 350 Weight 42.1 kg Lab Results: Lab Results-Last 24 Hours 07/26/24 07/26/24 07/26/24 Range/Units 16:04 17:01 17:01 WBC (3.98-10.04) x10^3/uL RBC (3.93-5.22) x10^6/uL Hgb (11.2-15.7) g/dL Hct (34.1-44.9) % MCV (79.4-94.8) fL MCH (25.6-32.2) pg MCHC (32.2-35.5) g/dL RDW (11.7-14.4) % Plt Count (182-369) x10^3/uL MPV (9.4-12.3) fL PT (9.4-12.5) SECONDS INR (0.8-3.0) APTT (25.1-36.5) SECONDS Sodium (135-145) mmol/L Potassium (3.5-5.1) mmol/L Chloride (98-107) mmol/L Carbon Dioxide (22-30) mmol/L Anion Gap (5-15) MEQ/L BUN (7-17) mg/dL Creatinine (0.52-1.04) mg/dL Estimated GFR ML/MIN Glucose (74-106) mg/dL POC Glucometer 128 H (74 to 106) mg/dL Calcium (8.4-10.2) mg/dL Iron 46 (37-170) ug/dL TIBC 320 (265-462) ug/dL Iron Saturation 14 L (20-39) % Ferritin 46.3 (11.1-264) ng/mL Total Bilirubin (0.2-1.3) mg/dL AST (14-36) U/L ALT (0-35) U/L Alkaline Phosphatase (38-126) U/L Serum Total Protein (6.3-8.2) g/dL Albumin (3.5-5.0) g/dL Vitamin B12 624 (239-931) pg/mL Folic Acid 11.9 (2.76 - >20) ng/mL Vancomycin Trough (10-20) ug/mL 07/26/24 07/26/24 07/27/24 Range/Units 17:01 21:09 05:00 WBC (3.98-10.04) x10^3/uL RBC (3.93-5.22) x10^6/uL Hgb 10.1 L D (11.2-15.7) g/dL Hct 31.6 L (34.1-44.9) % MCV (79.4-94.8) fL MCH (25.6-32.2) pg MCHC (32.2-35.5) g/dL RDW (11.7-14.4) % Plt Count (182-369) x10^3/uL MPV (9.4-12.3) fL PT 10.5 (9.4-12.5) SECONDS INR 0.96 (0.8-3.0) APTT 28.4 (25.1-36.5) SECONDS Sodium (135-145) mmol/L Potassium (3.5-5.1) mmol/L Chloride (98-107) mmol/L Carbon Dioxide (22-30) mmol/L Anion Gap (5-15) MEQ/L BUN (7-17) mg/dL Creatinine (0.52-1.04) mg/dL Estimated GFR ML/MIN Glucose (74-106) mg/dL POC Glucometer 215 H (74 to 106) mg/dL Calcium (8.4-10.2) mg/dL Iron (37-170) ug/dL TIBC (265-462) ug/dL Iron Saturation (20-39) % Ferritin (11.1-264) ng/mL Total Bilirubin (0.2-1.3) mg/dL AST (14-36) U/L ALT (0-35) U/L Alkaline Phosphatase (38-126) U/L Serum Total Protein (6.3-8.2) g/dL Albumin (3.5-5.0) g/dL Vitamin B12 (239-931) pg/mL Folic Acid (2.76 - >20) ng/mL Vancomycin Trough (10-20) ug/mL 07/27/24 07/27/24 07/27/24 Range/Units 05:00 05:00 07:41 WBC 21.0 H (3.98-10.04) x10^3/uL RBC 3.94 (3.93-5.22) x10^6/uL Hgb 10.2 L (11.2-15.7) g/dL Hct 32.8 L (34.1-44.9) % MCV 83.2 (79.4-94.8) fL MCH 25.9 (25.6-32.2) pg MCHC 31.1 L (32.2-35.5) g/dL RDW 15.9 H (11.7-14.4) % Plt Count 351 (182-369) x10^3/uL MPV 9.4 (9.4-12.3) fL PT (9.4-12.5) SECONDS INR (0.8-3.0) APTT (25.1-36.5) SECONDS Sodium 138 (135-145) mmol/L Potassium 3.6 (3.5-5.1) mmol/L Chloride 104 (98-107) mmol/L Carbon Dioxide 30 (22-30) mmol/L Anion Gap 7.9 (5-15) MEQ/L BUN 15 (7-17) mg/dL Creatinine 0.48 L (0.52-1.04) mg/dL Estimated GFR 98.1 ML/MIN Glucose 148 H (74-106) mg/dL POC Glucometer 135 H (74 to 106) mg/dL Calcium 9.2 (8.4-10.2) mg/dL Iron (37-170) ug/dL TIBC (265-462) ug/dL Iron Saturation (20-39) % Ferritin (11.1-264) ng/mL Total Bilirubin 0.60 (0.2-1.3) mg/dL AST 24 (14-36) U/L ALT 14 (0-35) U/L Alkaline Phosphatase 85 (38-126) U/L Serum Total Protein 6.4 (6.3-8.2) g/dL Albumin 3.3 L (3.5-5.0) g/dL Vitamin B12 (239-931) pg/mL Folic Acid (2.76 - >20) ng/mL Vancomycin Trough (10-20) ug/mL 07/27/24 07/27/24 Range/Units 09:56 11:47 WBC (3.98-10.04) x10^3/uL RBC (3.93-5.22) x10^6/uL Hgb (11.2-15.7) g/dL Hct (34.1-44.9) % MCV (79.4-94.8) fL MCH (25.6-32.2) pg MCHC (32.2-35.5) g/dL RDW (11.7-14.4) % Plt Count (182-369) x10^3/uL MPV (9.4-12.3) fL PT (9.4-12.5) SECONDS INR (0.8-3.0) APTT (25.1-36.5) SECONDS Sodium (135-145) mmol/L Potassium (3.5-5.1) mmol/L Chloride (98-107) mmol/L Carbon Dioxide (22-30) mmol/L Anion Gap (5-15) MEQ/L BUN (7-17) mg/dL Creatinine (0.52-1.04) mg/dL Estimated GFR ML/MIN Glucose (74-106) mg/dL POC Glucometer 116 H (74 to 106) mg/dL Calcium (8.4-10.2) mg/dL Iron (37-170) ug/dL TIBC (265-462) ug/dL Iron Saturation (20-39) % Ferritin (11.1-264) ng/mL Total Bilirubin (0.2-1.3) mg/dL AST (14-36) U/L ALT (0-35) U/L Alkaline Phosphatase (38-126) U/L Serum Total Protein (6.3-8.2) g/dL Albumin (3.5-5.0) g/dL Vitamin B12 (239-931) pg/mL Folic Acid (2.76 - >20) ng/mL Vancomycin Trough 9.72 L (10-20) ug/mL Radiology Exams: Radiology Procedures Category Date Time Status CHEST 1 VIEW (PORTABLE) Urgent Exams 07/27/24 14:23 Completed FOOT (MINIMUM 3 VIEWS) Routine Exams 07/26/24 07:00 Completed GUIDE FOR VASCULAR ACCESS [US] Routine Exams 07/27/24 10:22 Completed PICC LINE PLACEMENT Routine Exams 07/27/24 09:40 Completed Multi-Disciplinary Progress Notes: Multi-Disciplinary Progress Notes 07/27/24 14:10 Case Management Note by Krista Ortiz DONE- NO LEVEL II REQUIRED, COPIES PLACED IN CHART REFERRAL FAXED AT THIS TIME TO [facility]. REFERRAL INCLUDED PASRR INFO AND PICC LINE INFORMATION Initialized on 07/27/24 14:10 - END OF NOTE 07/27/24 11:12 Pharmacy Note by David Da Silva Vancomycin trough low at 9.72. Will increase to q8h interval. Repeat trough with 10am dose tomorrow. Initialized on 07/27/24 11:12 - END OF NOTE Assessment/Plan (1) Acute on chronic osteomyelitis Current Visit: Yes Status: Acute Code(s): M86.10 - OTHER ACUTE OSTEOMYELITIS, UNSPECIFIED SITE; M86.60 - OTHER CHRONIC OSTEOMYELITIS, UNSPECIFIED SITE (2) Gas gangrene Current Visit: Yes Status: Acute Assessment & Plan: POD #2 Slight drop in WBC then trending upwards. Likely stress reaction. Expect trend to decrease over following days. Orders currently remain unchanged. PICC placement Will await culture and sensitivity for infection control course. incision assessed and appears to progressing without signficant complication. Dressing changed Pain control as prescribed Will follow with you Code(s): A48.0 - GAS GANGRENE (3) Cellulitis of foot associated with diabetes mellitus Current Visit: Yes Status: Acute Code(s): E11.628 - TYPE 2 DIABETES MELLITUS WITH OTHER SKIN COMPLICATIONS; L03.119 - CELLULITIS OF UNSPECIFIED PART OF LIMB (4) Diabetic foot ulcer Current Visit: Yes Status: Acute Code(s): E11.621 - TYPE 2 DIABETES MELLITUS WITH FOOT ULCER; L97.509 - NON-PRESSURE CHRONIC ULCER OTH PRT UNSP FOOT W UNSP SEVERITY (5) Foot abscess, left Current Visit: Yes Status: Acute Code(s): L02.612 - CUTANEOUS ABSCESS OF LEFT FOOT
[2024-07-27] MEDS: VANCOCIN 500 MG VIAL*** 500 MG in Sodium Chloride 100ML MINI-BAG PLUS 100 ML IV SCH (17:53)
[2024-07-28 04:44] LABS: Absolute Neutrophil Ct (ANC) 14.25 x10^3/uL (1.56-6.13); BASOPHIL % 0.3 % (0.1-1.2); Basophil (Absolute #) 0.06 x10^3/uL (0.01-0.08); Eosinophil % 1.4 % (0.7-5.8); Eosinophil (Absolute #) 0.25 x10^3/uL (0.04-0.36); Hematocrit 30.8 % (34.1-44.9); Hemoglobin 9.7 g/dL (11.2-15.7); IMMATURE GRAN # 0.14 x10^3u/L (0.001-0.031); IMMATURE GRAN % 0.8 % (0.001-0.429); Lymphocyte (Absolute #) 1.18 x10^3/uL (1.18-3.74); Lymphocytes % 6.6 % (19.3-51.7); Mean Cell Volume 83.7 fL (79.4-94.8); Mean Corpuscular Hemoglobin 26.4 pg (25.6-32.2); Mean Corpuscular Hgb Concent. 31.5 g/dL (32.2-35.5); Mean Platelet Volume 9.9 fL (9.4-12.3); Monocyte (Absolute #) 1.97 x10^3/uL (0.24-0.86); Neutrophil % 79.9 % (34.0-71.1); Platelet Count 355 x10^3/uL (182-369); Red Blood Count 3.68 x10^6/uL (3.93-5.22); Red Cell Distribution Width 16.5 % (11.7-14.4); White Blood Count 17.9 x10^3/uL (3.98-10.04)
[2024-07-28 05:16] LABS: ANION GAP 7.3 MEQ/L (5-15); BILIRUBIN,TOTAL 0.5 mg/dL (0.2-1.3); Calcium 8.6 mg/dL (8.4-10.2); Creatinine 1 0.52 mg/dL (0.52-1.04); EST GLOMERULAR FILTRATION RATE 96.2 ML/MIN; Potassium 3.6 mmol/L (3.5-5.1); Total Protein 5.7 g/dL (6.3-8.2)
--- NOTE | 2024-07-28 05:23 | PCM.NOTE ---
Date and Time: 07/28/24 0522 Subjective Assessment: Ms. PEPPER is a 74 year old female with a past medical history significant for hypertension, diabetes with L foot ulcer status post multiple toe amputations, PAD status post R BKA and COPD/CHF under hospice services who was sent to the hospital by her hospice nurse after developing a blister on her left foot on 07/25/24. She was evaluated by the ER and found to have significant cellulitis/abscess on CT left foot by the great toe with an elevated WBC of 16k. She was started on IV antibiotics with meropenem and vancomycin and continued IP. Podiatry consult was obtained and took to surgery from ER and then admitted. Per podiatry note she has acute on chronic osteomyelitis and gas gangrene. Closed amputation left foot to the level of choparts. Wound and Blood cultures pending. Oxygen requirements increased to 5lNC last night as she was requiring more pain pain meds and she also takes benzos for anxiety causing respiratory depression. Narcan ordered PRN. She is a DNR but has revoked Hospice at this time so she could be admitted. PICC to be placed. Continue Merrem and vancomycin. 07/27: No overnight events noted. PICC to be placed today. Endorses pain to the LLE at 5/10 on numerical pain scale. No other complaints voiced. Plan to continue Merrem and vancomycin pending final culture results. 07/28/24: Met with patient bedside. Endorses shortness of breath this morning. CXR with no acute findings. Patient states she is having some anxiety about discharging to the nursing facility but has agreed to 2 weeks. Cultures still pending final read. Repeat left foot xray per podiatry is stable. Possible discharge tomorrow to SNF. Continue Merrem and vanc for now as current cultures showing possible oxacillin resistance and sent out to reference lab. - Review of Systems Constitutional: No Symptoms Eyes: No Symptoms Ears, Nose, & Throat: No Symptoms Respiratory: Short Of Breath Cardiac: No Symptoms Abdominal/Gastrointestinal: No Symptoms Genitourinary Symptoms: No Symptoms Musculoskeletal: Other (LLE pain 4/10) Skin: No Symptoms Neurological: No Symptoms Psychological: No Symptoms Endocrine: No Symptoms Hematologic/Lymphatic: No Symptoms Immunological/Allergic: No Symptoms Objective Exam General Appearance: no apparent distress Neurologic Exam: alert, oriented x 3, cooperative Skin Exam: normal color, other (see wound assessment LLE covered in surgical dressing) Wound Assessment: Skin/Wound Assessment Wound/Incision Assessment Start: 07/25/24 04:00 Text: Status: Active Freq: Q6H Protocol: Document 07/28/24 02:00 LIZZIERICKSPENCER (Rec: 07/28/24 02:16 AISSATOU [id number]) Wound/Incision Assessment Left Foot Wound Assessment Shift Assessment Wound Type Amputation Wound Stage Non Pressure Wound Dressing Status Dry & Intact Drainage Amount None Comment UNABLE TO ASSESS DUE TO DR. ZURITA DRESSING IN PLACE Eye Exam: PERRL Respiratory Exam: diminished breath sounds, crackles/rales Cardiovascular Exam: regular rate/rhythm, normal heart sounds Gastrointestinal/Abdomen Exam: soft, normal bowel sounds Extremity Exam: amputations (RBKA Left foot amputation) Back Exam: normal inspection Pelvic Exam: deferred Rectal Exam: deferred Objective Data Vital Signs: Vital Signs - 24 hr Temp Pulse Resp BP Pulse Ox 07/28/24 04:00 98.2 F 97 H 20 153/68 96 07/28/24 00:00 98.0 F 92 H 16 127/58 95 07/27/24 20:00 97.9 F 89 24 133/63 98 07/27/24 18:32 80 16 94 L 07/27/24 16:00 97.8 F 87 16 116/55 96 07/27/24 14:40 86 18 90 L 07/27/24 11:53 97.5 F 84 16 116/60 93 L 07/27/24 07:15 98.0 F 114 H 16 150/75 92 L Pain Assessment - Last Documented Pain Intensity 0 Pain Scale Used 0-10 Pain Scale Intake and Output: Intake & Output 07/25/24 07/26/24 07/27/24 07/28/24 11:59 11:59 11:59 11:59 Intake Total 340 1958 1529 2595 Output Total 1750 500 Balance 906 456 4664 2095 Weight 42.1 kg Lab Results: Lab Results-Last 24 Hours 07/27/24 07/27/24 07/27/24 Range/Units 05:00 05:00 07:41 PT 10.5 (9.4-12.5) SECONDS INR 0.96 (0.8-3.0) APTT 28.4 (25.1-36.5) SECONDS Sodium 138 (135-145) mmol/L Potassium 3.6 (3.5-5.1) mmol/L Chloride 104 (98-107) mmol/L Carbon Dioxide 30 (22-30) mmol/L Anion Gap 7.9 (5-15) MEQ/L BUN 15 (7-17) mg/dL Creatinine 0.48 L (0.52-1.04) mg/dL Estimated GFR 98.1 ML/MIN Glucose 148 H (74-106) mg/dL POC Glucometer 135 H (74 to 106) mg/dL Calcium 9.2 (8.4-10.2) mg/dL Total Bilirubin 0.60 (0.2-1.3) mg/dL AST 24 (14-36) U/L ALT 14 (0-35) U/L Alkaline Phosphatase 85 (38-126) U/L Serum Total Protein 6.4 (6.3-8.2) g/dL Albumin 3.3 L (3.5-5.0) g/dL Vancomycin Trough (10-20) ug/mL 07/27/24 07/27/24 07/27/24 Range/Units 09:56 11:47 16:36 PT (9.4-12.5) SECONDS INR (0.8-3.0) APTT (25.1-36.5) SECONDS Sodium (135-145) mmol/L Potassium (3.5-5.1) mmol/L Chloride (98-107) mmol/L Carbon Dioxide (22-30) mmol/L Anion Gap (5-15) MEQ/L BUN (7-17) mg/dL Creatinine (0.52-1.04) mg/dL Estimated GFR ML/MIN Glucose (74-106) mg/dL POC Glucometer 116 H 170 H (74 to 106) mg/dL Calcium (8.4-10.2) mg/dL Total Bilirubin (0.2-1.3) mg/dL AST (14-36) U/L ALT (0-35) U/L Alkaline Phosphatase (38-126) U/L Serum Total Protein (6.3-8.2) g/dL Albumin (3.5-5.0) g/dL Vancomycin Trough 9.72 L (10-20) ug/mL 07/27/24 Range/Units 22:12 PT (9.4-12.5) SECONDS INR (0.8-3.0) APTT (25.1-36.5) SECONDS Sodium (135-145) mmol/L Potassium (3.5-5.1) mmol/L Chloride (98-107) mmol/L Carbon Dioxide (22-30) mmol/L Anion Gap (5-15) MEQ/L BUN (7-17) mg/dL Creatinine (0.52-1.04) mg/dL Estimated GFR ML/MIN Glucose (74-106) mg/dL POC Glucometer 179 H (74 to 106) mg/dL Calcium (8.4-10.2) mg/dL Total Bilirubin (0.2-1.3) mg/dL AST (14-36) U/L ALT (0-35) U/L Alkaline Phosphatase (38-126) U/L Serum Total Protein (6.3-8.2) g/dL Albumin (3.5-5.0) g/dL Vancomycin Trough (10-20) ug/mL Radiology Exams: Radiology Procedures Category Date Time Status CHEST 1 VIEW (PORTABLE) Urgent Exams 07/27/24 14:23 Completed FOOT (MINIMUM 3 VIEWS) Routine Exams 07/26/24 07:00 Completed GUIDE FOR VASCULAR ACCESS [US] Routine Exams 07/27/24 10:22 Completed PICC LINE PLACEMENT Routine Exams 07/27/24 09:40 Completed Multi-Disciplinary Progress Notes: Multi-Disciplinary Progress Notes 07/27/24 14:10 Case Management Note by Krista Ortiz DONE- NO LEVEL II REQUIRED, COPIES PLACED IN CHART REFERRAL FAXED AT THIS TIME TO [facility]. REFERRAL INCLUDED PASRR INFO AND PICC LINE INFORMATION Initialized on 07/27/24 14:10 - END OF NOTE 07/27/24 11:12 Pharmacy Note by David Da Silva Vancomycin trough low at 9.72. Will increase to q8h interval. Repeat trough with 10am dose tomorrow. Initialized on 07/27/24 11:12 - END OF NOTE Assessment/Plan (1) Acute on chronic osteomyelitis Current Visit: Yes Status: Acute Assessment & Plan: - Podiatry consulted - Closed amputation left foot to the level of choparts completed in OR by podiatry. - Merrem and vancomycin IV - CT LLE reviewed - XR Left foot reviewed - Narcotic pain control PRN- Narcan PRN - Prostat 64 - CBC, CMP reviewed -WBC down-trending at 21.0<23.8- monitor - WC with gram + ID - BC x2 pending NGTD - IVF - PICC pending for OP ABX - POD #2 closed amputation right foot to the level of choparts Pain control- largely neuropathic however PRN percocet 7.5 q4-6h for moderate pain. For severe pain IV dilaudad .6mg q2-4h Dressing change to be preformed with packing pulled post op day #1 and redressed with Iodine adaptic 4x4 abd kerlix and 4inch and 6 inch [place]. 07/28: -PODS#3 - pain controlled -Discussed plan with podiatry - repeat left foot xray stable- can discharge to [place] tomorrow on Merrem and vanc- will follow up on culture as OP -Wound culture pending - sent out to reference lab -Continue Merrem and vanc Code(s): M86.10 - OTHER ACUTE OSTEOMYELITIS, UNSPECIFIED SITE; M86.60 - OTHER CHRONIC OSTEOMYELITIS, UNSPECIFIED SITE (2) Anemia Current Visit: Yes Status: Acute Assessment & Plan: - acute on chronic - Hgb 6.6 07/26/24- 2 units PRBC ordered- trend - Iron labs reviewed - iron saturation at 15% start ferrous sulfate -Hgb reviewed at 10.2- stable 07/28: Hgb reviewed and stable at 9.7 Code(s): D64.9 - ANEMIA, UNSPECIFIED (3) Cellulitis of foot associated with diabetes mellitus Current Visit: Yes Status: Acute Assessment & Plan: -see above plan - Good glycemic control for optimal wound healing Code(s): E11.628 - TYPE 2 DIABETES MELLITUS WITH OTHER SKIN COMPLICATIONS; L03.119 - CELLULITIS OF UNSPECIFIED PART OF LIMB (4) Diabetic foot ulcer Current Visit: Yes Status: Acute Assessment & Plan: -see above plan Code(s): E11.621 - TYPE 2 DIABETES MELLITUS WITH FOOT ULCER; L97.509 - NON-PRESSURE CHRONIC ULCER OTH PRT UNSP FOOT W UNSP SEVERITY (5) Foot abscess, left Current Visit: Yes Status: Acute Assessment & Plan: - POD day #3 from surgery - see osteomyelitis plan above. Code(s): L02.612 - CUTANEOUS ABSCESS OF LEFT FOOT (6) Gas gangrene Current Visit: Yes Status: Acute Assessment & Plan: - Per podiatry evaluation- see plan above Code(s): A48.0 - GAS GANGRENE (7) Anxiety Current Visit: Yes Status: Chronic Assessment & Plan: - Continue Ativan PO Code(s): F41.9 - ANXIETY DISORDER, UNSPECIFIED (8) CHF (congestive heart failure) Current Visit: Yes Status: Chronic Assessment & Plan: - Not in acute exacerbation - Continue home meds - No current echo to review Code(s): I50.9 - HEART FAILURE, UNSPECIFIED (9) COPD (chronic obstructive pulmonary disease) Current Visit: Yes Status: Chronic Qualifiers: COPD type: unspecified COPD Qualified Code(s): J44.9 - Chronic obstructive pulmonary disease, unspecified Assessment & Plan: - End stage COPD previously on Hospice prior to this admission - Bipap at night - Baseline 2lNC, on 5lNC currently- - Spiriva, ventolin inhalers (10) Essential (primary) hypertension Current Visit: Yes Status: Chronic Assessment & Plan: - BP stable - continue home med Code(s): I10 - ESSENTIAL (PRIMARY) HYPERTENSION (11) Hospice care patient Current Visit: Yes Status: Chronic Assessment & Plan: - Revoked with admission for treatment of left foot wound - end stage COPD - Consider restarting at d/c- discuss with case management Code(s): Z51.5 - ENCOUNTER FOR PALLIATIVE CARE (12) PAD (peripheral artery disease) Current Visit: Yes Status: Chronic Assessment & Plan: -noted - adds complexity Code(s): I73.9 - PERIPHERAL VASCULAR DISEASE, UNSPECIFIED (13) Peripheral neuropathy Current Visit: Yes Status: Chronic Assessment & Plan: - No home meds - could benefit from gabapentin Code(s): G62.9 - POLYNEUROPATHY, UNSPECIFIED (14) Type II diabetes mellitus Current Visit: Yes Status: Chronic Qualifiers: Diabetes mellitus prison insulin use: without medical terminologist use Diabetes mellitus complication status: with circulatory complication Diabetes mellitus complication detail: with peripheral angiopathy with gangrene Qualified Code(s): E11.52 - Type 2 diabetes mellitus with diabetic peripheral angiopathy with gangrene Assessment & Plan: -A1C 6.60 - ADA diet - accuchecks ac/hs - humalog s/s low dose (15) Underweight (BMI < 18.5) Current Visit: Yes Status: Chronic Assessment & Plan: - BMI 16.4 - nutritional consult - high protein ensure with each meal VTE: none PPI: protonix Next of KIN: Child- Ashley Pepper [phone] D/C plan: 2-3 days Code status: SCO/DNR Code(s): M86.10 - OTHER ACUTE OSTEOMYELITIS, UNSPECIFIED SITE; M86.60 - OTHER CHRONIC OSTEOMYELITIS, UNSPECIFIED SITE (2) Anemia Current Visit: Yes Status: Acute Code(s): D64.9 - ANEMIA, UNSPECIFIED (3) Cellulitis of foot associated with diabetes mellitus Current Visit: Yes Status: Acute Code(s): E11.628 - TYPE 2 DIABETES MELLITUS WITH OTHER SKIN COMPLICATIONS; L03.119 - CELLULITIS OF UNSPECIFIED PART OF LIMB (4) Diabetic foot ulcer Current Visit: Yes Status: Acute Code(s): E11.621 - TYPE 2 DIABETES MELLITUS WITH FOOT ULCER; L97.509 - NON-PRESSURE CHRONIC ULCER OTH PRT UNSP FOOT W UNSP SEVERITY (5) Foot abscess, left Current Visit: Yes Status: Acute Code(s): L02.612 - CUTANEOUS ABSCESS OF LEFT FOOT (6) Gas gangrene Current Visit: Yes Status: Acute Code(s): A48.0 - GAS GANGRENE (7) Anxiety Current Visit: Yes Status: Chronic Code(s): F41.9 - ANXIETY DISORDER, UNSPECIFIED (8) CHF (congestive heart failure) Current Visit: Yes Status: Chronic Code(s): I50.9 - HEART FAILURE, UNSPECIFIED (9) COPD (chronic obstructive pulmonary disease) Current Visit: Yes Status: Chronic Qualifiers: COPD type: unspecified COPD Qualified Code(s): J44.9 - Chronic obstructive pulmonary disease, unspecified (10) Essential (primary) hypertension Current Visit: Yes Status: Chronic Code(s): I10 - ESSENTIAL (PRIMARY) HYPERTENSION (11) Hospice care patient Current Visit: Yes Status: Chronic Code(s): Z51.5 - ENCOUNTER FOR PALLIATIVE CARE (12) PAD (peripheral artery disease) Current Visit: Yes Status: Chronic Code(s): I73.9 - PERIPHERAL VASCULAR DISEASE, UNSPECIFIED (13) Peripheral neuropathy Current Visit: Yes Status: Chronic Code(s): G62.9 - POLYNEUROPATHY, UNSPECIFIED (14) Type II diabetes mellitus Current Visit: Yes Status: Chronic Qualifiers: Diabetes mellitus medical terminologist insulin use: without prison use Diabetes mellitus complication status: with circulatory complication Diabetes mellitus complication detail: with peripheral angiopathy with gangrene Qualified Code(s): E11.52 - Type 2 diabetes mellitus with diabetic peripheral angiopathy with gangrene (15) Underweight (BMI < 18.5) Current Visit: Yes Status: Chronic Code(s): R63.6 - UNDERWEIGHT; Z68.1 - BODY MASS INDEX [BMI] 19.9 OR LESS, ADULT
--- NOTE | 2024-07-28 08:52 | XRAY ---
Indication: Short of breath. Comparison: One day earlier. Portable chest unchanged again demonstrating COPD and minimal/mild bibasilar subsegmental atelectasis/scarring. Heart not enlarged again with right arm PICC line. No new/acute cardiopulmonary abnormalities.
[2024-07-28 09:15] LABS: Slide Review 1 YES
[2024-07-28] MEDS: TROUGH DRUG LEVELS IJ ONE (10:07)
--- NOTE | 2024-07-28 12:00 | XRAY ---
Indication: Follow-up surgery. Comparison: July 26, 2024 3 view left foot again demonstrates osteopenia and amputation mid to distal foot with remnant soft tissue swelling with subcutaneous emphysema grossly unchanged. No new bony, articular, or soft tissue abnormalities.
--- NOTE | 2024-07-29 05:05 | PCM.DS ---
Discharge Summary Date of Admission: 07/25/24 08:55 Date of Discharge: 07/29/24 Admitting Physician: KAYLA MALHOTRA MD Consults: Consults on Case 07/26/24 10:18 Nutritional Consult ROUTINE Primary Care Provider: NO FAMILY DOCTOR Allergies Allergies cefuroxime Allergy (Severe, Verified 07/25/24 00:16) roflumilast [From Daliresp] Allergy (Severe, Verified 07/25/24 00:16) Hospital Summary - Hospital Course Hospital Course: Ms. PEPPER is a 74 year old female with a past medical history significant for hypertension, diabetes with L foot ulcer status post multiple toe amputations, PAD status post R BKA and COPD/CHF under hospice services who was sent to the hospital by her hospice nurse after developing a blister on her left foot on 07/25/24. She was evaluated by the ER and found to have significant cellulitis/abscess on CT left foot by the great toe with an elevated WBC of 16k. She was started on IV antibiotics with meropenem and vancomycin and continued IP. Podiatry consult was obtained and took to surgery from ER and then admitted. Per podiatry note she has acute on chronic osteomyelitis and gas gangrene. [facility] Wound and Blood cultures pending. Oxygen requirements increased to 5lNC last night as she was requiring more pain pain meds and she also takes benzos for anxiety causing respiratory depression. Narcan ordered PRN. She is a DNR but has revoked Hospice at this time so she could be admitted. PICC to be placed. Continue Merrem and vancomycin. PICC placed.Cultures still pending final read. Repeat left foot xray per podiatry is stable. Continue Merrem and vanc for now as current cultures showing staph aureus with possible oxacillin resistance and sent out to reference lab. Poditatry to follow with final wound culture results. Repeat left foot xray stable per podiatry- they have cleared pt for discharge with close fol low up. Dressing changes per podiatry. Will discharge to SNF. Discharge Note New Medications: merem and vanc Follow Up: Podiatry Results pending: wound culture Latest Assessment & Plan (1) Acute on chronic osteomyelitis Current Visit: Yes Status: Acute Assessment & Plan: - Podiatry consulted - Closed amputation left foot to the level of choparts completed in OR by podiatry. - Merrem and vancomycin IV - CT LLE reviewed - XR Left foot reviewed - Narcotic pain control PRN- Narcan PRN - Prostat 64 - CBC, CMP reviewed -WBC down-trending at 21.0<23.8- monitor - WC with gram + ID - BC x2 pending NGTD - IVF - PICC pending for OP ABX - POD #2 closed amputation right foot to the level of choparts Pain control- largely neuropathic however PRN percocet 7.5 q4-6h for moderate pain. For severe pain IV dilaudad .6mg q2-4h Dressing change to be preformed with packing pulled post op day #1 and redressed with Iodine adaptic 4x4 abd kerlix and 4inch and 6 inch [place]. 07/28: -PODS#3 - pain controlled -Discussed plan with podiatry - repeat left foot xray stable- can discharge to [facility] tomorrow on Merrem and vanc- will follow up on culture as OP -Wound culture pending - sent out to reference lab -Continue Merrem and vanc Code(s): M86.10 - OTHER ACUTE OSTEOMYELITIS, UNSPECIFIED SITE; M86.60 - OTHER CHRONIC OSTEOMYELITIS, UNSPECIFIED SITE (2) Anemia Current Visit: Yes Status: Acute Assessment & Plan: - acute on chronic - Hgb 6.6 07/26/24- 2 units PRBC ordered- trend - Iron labs reviewed - iron saturation at 15% start ferrous sulfate -Hgb reviewed at 10.2- stable 07/28: Hgb reviewed and stable at 9.7 Code(s): D64.9 - ANEMIA, UNSPECIFIED (3) Cellulitis of foot associated with diabetes mellitus Current Visit: Yes Status: Acute Assessment & Plan: -see above plan - Good glycemic control for optimal wound healing Code(s): E11.628 - TYPE 2 DIABETES MELLITUS WITH OTHER SKIN COMPLICATIONS; L03.119 - CELLULITIS OF UNSPECIFIED PART OF LIMB (4) Diabetic foot ulcer Current Visit: Yes Status: Acute Assessment & Plan: -see above plan Code(s): E11.621 - TYPE 2 DIABETES MELLITUS WITH FOOT ULCER; L97.509 - NON- PRESSURE CHRONIC ULCER OTH PRT UNSP FOOT W UNSP SEVERITY (5) Foot abscess, left Current Visit: Yes Status: Acute Assessment & Plan: - POD day #3 from surgery - see osteomyelitis plan above. Code(s): L02.612 - CUTANEOUS ABSCESS OF LEFT FOOT (6) Gas gangrene Current Visit: Yes Status: Acute Assessment & Plan: - Per podiatry evaluation- see plan above Code(s): A48.0 - GAS GANGRENE (7) Anxiety Current Visit: Yes Status: Chronic Assessment & Plan: - Continue Ativan PO Code(s): F41.9 - ANXIETY DISORDER, UNSPECIFIED (8) CHF (congestive heart failure) Current Visit: Yes Status: Chronic Assessment & Plan: - Not in acute exacerbation - Continue home meds - No current echo to review Code(s): I50.9 - HEART FAILURE, UNSPECIFIED (9) COPD (chronic obstructive pulmonary disease) Current Visit: Yes Status: Chronic Qualifiers: COPD type: unspecified COPD Qualified Code(s): J44.9 - Chronic obstructive pulmonary disease, unspecified Assessment & Plan: - End stage COPD previously on Hospice prior to this admission - Bipap at night - Baseline 2lNC, on 5lNC currently- - Spiriva, ventolin inhalers (10) Essential (primary) hypertension Current Visit: Yes Status: Chronic Assessment & Plan: - BP stable - continue home med Code(s): I10 - ESSENTIAL (PRIMARY) HYPERTENSION (11) Hospice care patient Current Visit: Yes Status: Chronic Assessment & Plan: - Revoked with admission for treatment of left foot wound - end stage COPD - Consider restarting at d/c- discuss with case management Code(s): Z51.5 - ENCOUNTER FOR PALLIATIVE CARE (12) PAD (peripheral artery disease) Current Visit: Yes Status: Chronic Assessment & Plan: -noted - adds complexity Code(s): I73.9 - PERIPHERAL VASCULAR DISEASE, UNSPECIFIED (13) Peripheral neuropathy Current Visit: Yes Status: Chronic Assessment & Plan: - No home meds - could benefit from gabapentin Code(s): G62.9 - POLYNEUROPATHY, UNSPECIFIED (14) Type II diabetes mellitus Current Visit: Yes Status: Chronic Qualifiers: Diabetes mellitus fpc insulin use: without fpc use Diabetes mellitus complication status: with circulatory complication Diabetes mellitus complication detail: with peripheral angiopathy with gangrene Qualified Code(s): E11.52 - Type 2 diabetes mellitus with diabetic peripheral angiopathy with gangrene Assessment & Plan: -A1C 6.60 - ADA diet - accuchecks ac/hs - humalog s/s low dose (15) Underweight (BMI < 18.5) Current Visit: Yes Status: Chronic Assessment & Plan: - BMI 16.4 - nutritional consult - high protein ensure with each meal I spent 35 minutes [id number] with the patient on the day of discharge performing discharge exam, discussing hospital stay and discharge instructions with patient and caregivers, preparation of discharge records, prescriptions & referral forms and addressing any questions/concerns the patient had as do cumented above. - Vitals & Intake/Output Vital Signs: Vital Signs Temperature 97.8 F 07/29/24 03:40 Pulse Rate 87 07/29/24 03:40 Respiratory Rate 16 07/29/24 03:40 Blood Pressure 134/61 07/29/24 03:40 O2 Sat by Pulse Oximetry 99 07/29/24 03:40 Intake & Output: Intake & Output 07/26/24 07/27/24 07/28/24 07/29/24 11:59 11:59 11:59 11:59 Intake Total 195 1529 2835 1819 Output Total 1750 2050 1950 Balance 208 1529 785 -131 Weight 42.1 kg - Lab Result Diagrams: 07/29/24 04:59 07/29/24 09:04 Lab Results-Last 24 Hrs: Lab Results-Last 24 Hours 07/28/24 07/28/24 07/28/24 Range/Units 04:25 04:25 07:05 WBC 17.9 H (3.98-10.04) x10^3/uL RBC 3.68 L (3.93-5.22) x10^6/uL Hgb 9.7 L (11.2-15.7) g/dL Hct 30.8 L (34.1-44.9) % MCV 83.7 (79.4-94.8) fL MCH 26.4 (25.6-32.2) pg MCHC 31.5 L (32.2-35.5) g/dL RDW 16.5 H (11.7-14.4) % Plt Count 355 (182-369) x10^3/uL MPV 9.9 (9.4-12.3) fL Gran % 79.9 H (34.0-71.1) % Immature Gran % (Auto) 0.8 H (0.001-0.429) % Nucleat RBC Rel Count 0.0 (0.00-0.2) % Eos # (Auto) 0.25 (0.04-0.36) x10^3/uL Immature Gran # (Auto) 0.14 H (0.001-0.031) x10^3u/L Absolute Lymphs (auto) 1.18 (1.18-3.74) x10^3/uL Absolute Monos (auto) 1.97 H (0.24-0.86) x10^3/uL Absolute Nucleated RBC 0.00 (0.00-0.012) x10^3u/L Lymphocytes % 6.6 L (19.3-51.7) % Monocytes % 11.0 (4.7-12.5) % Eosinophils % 1.4 (0.7-5.8) % Basophils % 0.3 (0.1-1.2) % Absolute Granulocytes 14.25 H (1.56-6.13) x10^3/uL Basophils # 0.06 (0.01-0.08) x10^3/uL Sodium 137 (135-145) mmol/L Potassium 3.6 (3.5-5.1) mmol/L Chloride 102 (98-107) mmol/L Carbon Dioxide 31 H (22-30) mmol/L Anion Gap 7.3 (5-15) MEQ/L BUN 12 (7-17) mg/dL Creatinine 0.52 (0.52-1.04) mg/dL Estimated GFR 96.2 ML/MIN Glucose 109 H (74-106) mg/dL POC Glucometer 107 H (74 to 106) mg/dL Calcium 8.6 (8.4-10.2) mg/dL Total Bilirubin 0.50 (0.2-1.3) mg/dL AST 33 (14-36) U/L ALT 17 (0-35) U/L Alkaline Phosphatase 87 (38-126) U/L Serum Total Protein 5.7 L (6.3-8.2) g/dL Albumin 3.0 L (3.5-5.0) g/dL Vancomycin Trough (10-20) ug/mL Slides for Path Review YES 07/28/24 07/28/24 07/28/24 Range/Units 09:30 11:28 16:04 WBC (3.98-10.04) x10^3/uL RBC (3.93-5.22) x10^6/uL Hgb (11.2-15.7) g/dL Hct (34.1-44.9) % MCV (79.4-94.8) fL MCH (25.6-32.2) pg MCHC (32.2-35.5) g/dL RDW (11.7-14.4) % Plt Count (182-369) x10^3/uL MPV (9.4-12.3) fL Gran % (34.0-71.1) % Immature Gran % (Auto) (0.001-0.429) % Nucleat RBC Rel Count (0.00-0.2) % Eos # (Auto) (0.04-0.36) x10^3/uL Immature Gran # (Auto) (0.001-0.031) x10^3u/L Absolute Lymphs (auto) (1.18-3.74) x10^3/uL Absolute Monos (auto) (0.24-0.86) x10^3/uL Absolute Nucleated RBC (0.00-0.012) x10^3u/L Lymphocytes % (19.3-51.7) % Monocytes % (4.7-12.5) % Eosinophils % (0.7-5.8) % Basophils % (0.1-1.2) % Absolute Granulocytes (1.56-6.13) x10^3/uL Basophils # (0.01-0.08) x10^3/uL Sodium (135-145) mmol/L Potassium (3.5-5.1) mmol/L Chloride (98-107) mmol/L Carbon Dioxide (22-30) mmol/L Anion Gap (5-15) MEQ/L BUN (7-17) mg/dL Creatinine (0.52-1.04) mg/dL Estimated GFR ML/MIN Glucose (74-106) mg/dL POC Glucometer 133 H 142 H (74 to 106) mg/dL Calcium (8.4-10.2) mg/dL Total Bilirubin (0.2-1.3) mg/dL AST (14-36) U/L ALT (0-35) U/L Alkaline Phosphatase (38-126) U/L Serum Total Protein (6.3-8.2) g/dL Albumin (3.5-5.0) g/dL Vancomycin Trough 16.57 (10-20) ug/mL Slides for Path Review 07/28/24 Range/Units 21:12 WBC (3.98-10.04) x10^3/uL RBC (3.93-5.22) x10^6/uL Hgb (11.2-15.7) g/dL Hct (34.1-44.9) % MCV (79.4-94.8) fL MCH (25.6-32.2) pg MCHC (32.2-35.5) g/dL RDW (11.7-14.4) % Plt Count (182-369) x10^3/uL MPV (9.4-12.3) fL Gran % (34.0-71.1) % Immature Gran % (Auto) (0.001-0.429) % Nucleat RBC Rel Count (0.00-0.2) % Eos # (Auto) (0.04-0.36) x10^3/uL Immature Gran # (Auto) (0.001-0.031) x10^3u/L Absolute Lymphs (auto) (1.18-3.74) x10^3/uL Absolute Monos (auto) (0.24-0.86) x10^3/uL Absolute Nucleated RBC (0.00-0.012) x10^3u/L Lymphocytes % (19.3-51.7) % Monocytes % (4.7-12.5) % Eosinophils % (0.7-5.8) % Basophils % (0.1-1.2) % Absolute Granulocytes (1.56-6.13) x10^3/uL Basophils # (0.01-0.08) x10^3/uL Sodium (135-145) mmol/L Potassium (3.5-5.1) mmol/L Chloride (98-107) mmol/L Carbon Dioxide (22-30) mmol/L Anion Gap (5-15) MEQ/L BUN (7-17) mg/dL Creatinine (0.52-1.04) mg/dL Estimated GFR ML/MIN Glucose (74-106) mg/dL POC Glucometer 130 H (74 to 106) mg/dL Calcium (8.4-10.2) mg/dL Total Bilirubin (0.2-1.3) mg/dL AST (14-36) U/L ALT (0-35) U/L Alkaline Phosphatase (38-126) U/L Serum Total Protein (6.3-8.2) g/dL Albumin (3.5-5.0) g/dL Vancomycin Trough (10-20) ug/mL Slides for Path Review Micro Results-Entire Visit: Microbiology 07/25/24 07:53 Gram Stain - Final Bone - Left Gram Stain Result 1 - Final Gram Stain Result 2 - Final AFB Specimen Processing - Final Acid Fast Bacilli Smear - Final 07/25/24 00:12 Wound Culture - Preliminary Foot - Left Bottom STAPH AUREUS, SENSITIVITY PENDING 07/25/24 00:10 Wound Culture - Preliminary Toe - L Big (Greater) STAPH AUREUS, SENSITIVITY PENDING 07/25/24 00:25 Aerobic Organism ID Result 1 - Final Foot - Left Not Reportable Aerobic Organism ID Result 2 - Final Not Reportable Aerobic Organism ID Result 3 - Final Not Reportable Aerobic Organism ID Result 4 - Final Not Reportable Aerobic Bacterial Sensitivity - Final Not Reportable 07/24/24 23:35 Blood Culture - Preliminary Blood 07/24/24 23:50 Blood Culture - Preliminary Blood Accuchecks Date 07/28/24 Date 07/28/24 Date 07/28/24 Date 07/28/24 Time 21:00 Time 11:33 - Radiology Exams Ordered Rad Exams-Entire Visit: Radiology Procedures Category Date Time Status CHEST 1 VIEW (PORTABLE) Urgent Exams 07/27/24 14:23 Completed CHEST 1 VIEW (PORTABLE) Urgent Exams 07/28/24 08:19 Completed FOOT (MINIMUM 3 VIEWS) Urgent Exams 07/28/24 10:52 Completed GUIDE FOR VASCULAR ACCESS [US] Routine Exams 07/27/24 10:22 Completed PICC LINE PLACEMENT Routine Exams 07/27/24 09:40 Completed - Procedures and Test Procedures and Tests throughout Hospitalization: Therapy Orders & Screens 07/25/24 03:57 Oxygen Nasal Cannula 2 lpm Comment: Respiratory Therapy Consult ONCE Comment: Reason For Exam: 07/25/24 05:25 EKG ONCE Comment: Diagnosis: cellulitis Respiratory Therapy Assessment DAILY Comment: Diagnosis: cellulitis 07/25/24 05:39 Respiratory MDI BID Comment: Diagnosis: cellulitis 07/25/24 08:55 Incentive Spirometry UD Comment: EVERY HOUR [place] Diagnosis: cellulitis 07/25/24 14:21 BiPap/CPAP ROUTINE Comment: as per home unit. Diagnosis: cellulitis Discharge Exam General Appearance: no apparent distress Neurologic Exam: alert, oriented x 3, cooperative Eye Exam: PERRL Ears, Nose, Throat Exam: normal ENT inspection Neck Exam: normal inspection Respiratory Exam: normal breath sounds, lungs clear Cardiovascular Exam: regular rate/rhythm, normal heart sounds Gastrointestinal/Abdomen Exam: soft, normal bowel sounds Pelvic Exam: deferred Rectal Exam: deferred Back Exam: normal inspection Extremity Exam: amputations (RBKA L foot with surgical dressing) Skin Exam: normal color Wound Assessment: Skin/Wound Assessment Wound/Incision Assessment Start: 07/25/24 04:00 Text: Status: Active Freq: Q6H Protocol: Document 07/29/24 02:00 AMELIA (Rec: 07/29/24 02:06 AK [id number]) Wound/Incision Assessment Left Foot Wound Assessment Shift Assessment Wound Type Amputation Wound Stage Non Pressure Wound Dressing Status Dry & Intact Comment bulky dressing CDI - KYREE wound Wound Photo Photo Taken No Final Diagnosis/Problem List - Final Discharge Diagnosis/Problem (1) Acute on chronic osteomyelitis Current Visit: Yes Status: Acute Code(s): M86.10 - OTHER ACUTE OST EOMYELITIS, UNSPECIFIED SITE; M86.60 - OTHER CHRONIC OSTEOMYELITIS, UNSPECIFIED SITE (2) Anemia Current Visit: Yes Status: Chronic Code(s): D64.9 - ANEMIA, UNSPECIFIED (3) Cellulitis of foot associated with diabetes mellitus Current Visit: Yes Status: Acute Code(s): E11.628 - TYPE 2 DIABETES MELLITUS WITH OTHER SKIN COMPLICATIONS; L03.119 - CELLULITIS OF UNSPECIFIED PART OF LIMB (4) Diabetic foot ulcer Current Visit: Yes Status: Chronic Code(s): E11.621 - TYPE 2 DIABETES MELLITUS WITH FOOT ULCER; L97.509 - NON-PRESSURE CHRONIC ULCER OTH PRT UNSP FOOT W UNSP SEVERITY (5) Foot abscess, left Current Visit: Yes Status: Resolved Code(s): L02.612 - CUTANEOUS ABSCESS OF LEFT FOOT (6) Gas gangrene Current Visit: Yes Status: Resolved Code(s): A48.0 - GAS GANGRENE (7) Anxiety Current Visit: Yes Status: Chronic Code(s): F41.9 - ANXIETY DISORDER, UNSPECIFIED (8) CHF (congestive heart failure) Current Visit: Yes Status: Chronic Code(s): I50.9 - HEART FAILURE, UNSPECIFIED (9) COPD (chronic obstructive pulmonary disease) Current Visit: Yes Status: Chronic (10) Essential (primary) hypertension Current Visit: Yes Status: Chronic Code(s): I10 - ESSENTIAL (PRIMARY) HYPERTENSION (11) Hospice care patient Current Visit: Yes Status: Chronic Code(s): Z51.5 - ENCOUNTER FOR PALLIATIVE CARE (12) PAD (peripheral artery disease) Current Visit: Yes Status: Chronic Code(s): I73.9 - PERIPHERAL VASCULAR DISEASE, UNSPECIFIED (13) Peripheral neuropathy Current Visit: Yes Status: Chronic Code(s): G62.9 - POLYNEUROPATHY, UNSPECIFIED (14) Type II diabetes mellitus Current Visit: Yes Status: Chronic (15) Underweight (BMI < 18.5) Current Visit: Yes Status: Chronic Code(s): R63.6 - UNDERWEIGHT; Z68.1 - BODY MASS INDEX [BMI] 19.9 OR LESS, ADULT - Discharge Discharge Date: 07/29/24 Disposition: DC TO ANY "OTHER" RETIREMENT Condition: Fair Prescriptions: New Ferrous Sulfate 325 mg [Feosol 325 mg] 325 mg PO DAILY tablet Heparin Flush 500 units/5 ml [Heparin Lock Flush 500 Units/5ml Syringe] 500 units PICC PRN PRN PRN Reason: Iv Port Flush LORazepam [Lorazepam] 0.25 mg PO Q6HPRN PRN 3 Days #6 tablet MDD 2 PRN Reason: Anxiety Meropenem [Merrem] 1 g IV Q12HT Naloxone HCl 0.4 mg/ml [Narcan 0.4 MG/ML] 0.4 mg IV PRN PRN PRN Reason: Respiratory Depression Oxycodone/APAP 5 mg/325 mg [Percocet Tablet 5/325Mg] 1.5 tab PO Q6HPRN PRN 3 Days #27 tablet MDD 6 PRN Reason: PAIN 5-7 Pantoprazole 20 mg [Protonix 20MG Tablet] 20 mg PO DAILY tablet Albuterol 2.5 mg/3 ml Neb [Proventil 2.5 mg/3 ml Neb] 2.5 mg IH BIDRT Tiotropium [place] Inhaler [Spiriva 18 Mcg/Cap Inhaler] 1 ea IH DAILY inhaler Acetaminophen 325 mg [Tylenol 325 mg] 650 mg PO Q4H PRN PRN tablet PRN Reason: Pain And/Or Fever Albuterol Common Canister [Ventolin Common Canister] 2 puff IH Q4H PRN PRN PRN Reason: Shortness Of Breath/Wheezing Continue Prednisone 5 mg [Deltasone 5 mg] 5 mg PO DAILY Montelukast Sodium 10 mg [Singulair 10 MG] 10 mg PO DAILY dilTIAZem HCL [Diltiazem 24Hr ER (Cd)] 120 mg PO DAILY Hydrocodone/Acetaminophen [[place] 10-325 mg] 1 tablet PO BID 3 Days #6 tablet MDD 2 Discontinued LORazepam [Lorazepam Intensol] 0.5 mg PO Q2H/PRN PRN PRN Reason: Anxiety Additional Instructions: RETIREMENT ORDERS: ADMIT TO LONGTERM CARE 1999 JUAN C ADA DIET ENSURE HIGH PROTEIN WITH EVERY MEAL PROSTAT 64 TO AID IN WOUND HEALING ACHS ACCU CHECKS OXYGEN AT 2-3L BIPAP AT HAS PER HOME USE ROUTINE PICC LINE CARE NEED WEIGHTBEARING STATUS, ANTIBIOTICS, DRESSING CHANGES, DVT PROPHYLAXIS SEE ATTACHED MED LIST Follow up with: PARMINDER WILKES DPM [ACTIVE STAFF] - 08/05/24 10:00 am NATANAEL STRINGER [NON-STAFF PHY W/O PRIVILEGES] - 08/03/24 10:30 am
[2024-07-29 05:06] LABS: Absolute Neutrophil Ct (ANC) 10.57 x10^3/uL (1.56-6.13); BASOPHIL % 0.4 % (0.1-1.2); Basophil (Absolute #) 0.05 x10^3/uL (0.01-0.08); Eosinophil (Absolute #) 0.29 x10^3/uL (0.04-0.36); Hematocrit 29.7 % (34.1-44.9); Hemoglobin 9.2 g/dL (11.2-15.7); IMMATURE GRAN # 0.09 x10^3u/L (0.001-0.031); IMMATURE GRAN % 0.6 % (0.001-0.429); Lymphocyte (Absolute #) 1.23 x10^3/uL (1.18-3.74); Lymphocytes % 8.6 % (19.3-51.7); Mean Cell Volume 85.3 fL (79.4-94.8); Mean Corpuscular Hemoglobin 26.4 pg (25.6-32.2); Mean Platelet Volume 9.6 fL (9.4-12.3); Monocytes % 14.1 % (4.7-12.5); Neutrophil % 74.3 % (34.0-71.1); Platelet Count 346 x10^3/uL (182-369); Red Blood Count 3.48 x10^6/uL (3.93-5.22); Red Cell Distribution Width 16.9 % (11.7-14.4); White Blood Count 14.2 x10^3/uL (3.98-10.04)
[2024-07-29 05:32] LABS: ALBUMIN 2.9 g/dL (3.5-5.0); ANION GAP 4.4 MEQ/L (5-15); BILIRUBIN,TOTAL 0.7 mg/dL (0.2-1.3); Calcium 8.2 mg/dL (8.4-10.2); Creatinine 1 0.42 mg/dL (0.52-1.04); EST GLOMERULAR FILTRATION RATE 101.3 ML/MIN; Total Protein 5.5 g/dL (6.3-8.2)
[2024-07-29 05:43] LABS: Slide Review 1 YES
[2024-07-29] MEDS: Klor Con PO ONE (06:05)
[2024-07-29 12:05] VITALS: BP 126/56; PULSE 90; RESP 18; TEMP 98
--- NOTE | 2024-07-29 16:46 | PCM.NOTE ---
Date and Time: 07/29/24 1646 Subjective Assessment: doing well POD #4 Physical Exam - Narrative Narrative Physical Exam: Podiatry Physical Exam Objective Data Vital Signs: Vital Signs - 24 hr Temp Pulse Resp BP Pulse Ox 07/29/24 12:00 98.0 F 90 18 126/56 93 L 07/29/24 08:00 98.7 F 98 H 20 125/76 07/29/24 06:55 87 18 98 07/29/24 03:40 97.8 F 87 16 134/61 99 07/28/24 23:50 96.2 F 80 16 121/58 96 07/28/24 20:00 97.8 F 96 H 16 137/74 97 07/28/24 17:02 90 20 96 Pain Assessment - Last Documented Pain Intensity 0 Pain Scale Used 0-10 Pain Scale Intake and Output: Intake & Output 07/27/24 07/28/24 07/29/24 07/30/24 11:59 11:59 11:59 11:59 Intake Total 1522 2830 2299 120 Output Total 3634 2650 Balance 1529 785 -351 120 Weight 42.1 kg Lab Results: Lab Results-Last 24 Hours 07/28/24 07/29/24 07/29/24 Range/Units 21:12 04:59 04:59 WBC 14.2 H (3.98-10.04) x10^3/uL RBC 3.48 L (3.93-5.22) x10^6/uL Hgb 9.2 L (11.2-15.7) g/dL Hct 29.7 L (34.1-44.9) % MCV 85.3 (79.4-94.8) fL MCH 26.4 (25.6-32.2) pg MCHC 31.0 L (32.2-35.5) g/dL RDW 16.9 H (11.7-14.4) % Plt Count 346 (182-369) x10^3/uL MPV 9.6 (9.4-12.3) fL Gran % 74.3 H (34.0-71.1) % Immature Gran % (Auto) 0.6 H (0.001-0.429) % Nucleat RBC Rel Count 0.0 (0.00-0.2) % Eos # (Auto) 0.29 (0.04-0.36) x10^3/uL Immature Gran # (Auto) 0.09 H (0.001-0.031) x10^3u/L Absolute Lymphs (auto) 1.23 (1.18-3.74) x10^3/uL Absolute Monos (auto) 2.00 H (0.24-0.86) x10^3/uL Absolute Nucleated RBC 0.00 (0.00-0.012) x10^3u/L Lymphocytes % 8.6 L (19.3-51.7) % Monocytes % 14.1 H (4.7-12.5) % Eosinophils % 2.0 (0.7-5.8) % Basophils % 0.4 (0.1-1.2) % Absolute Granulocytes 10.57 H (1.56-6.13) x10^3/uL Basophils # 0.05 (0.01-0.08) x10^3/uL Sodium 136 (135-145) mmol/L Potassium 3.0 L* (3.5-5.1) mmol/L Chloride 100 (98-107) mmol/L Carbon Dioxide 35 H (22-30) mmol/L Anion Gap 4.4 L (5-15) MEQ/L BUN 6 L (7-17) mg/dL Creatinine 0.42 L (0.52-1.04) mg/dL Estimated GFR 101.3 ML/MIN Glucose 101 (74-106) mg/dL POC Glucometer 130 H (74 to 106) mg/dL Calcium 8.2 L (8.4-10.2) mg/dL Magnesium (1.6-2.3) mg/dL Total Bilirubin 0.70 (0.2-1.3) mg/dL AST 36 (14-36) U/L ALT 21 (0-35) U/L Alkaline Phosphatase 87 (38-126) U/L Serum Total Protein 5.5 L (6.3-8.2) g/dL Albumin 2.9 L (3.5-5.0) g/dL Slides for Path Review YES 07/29/24 07/29/24 07/29/24 Range/Units 05:38 07:12 09:04 WBC (3.98-10.04) x10^3/uL RBC (3.93-5.22) x10^6/uL Hgb (11.2-15.7) g/dL Hct (34.1-44.9) % MCV (79.4-94.8) fL MCH (25.6-32.2) pg MCHC (32.2-35.5) g/dL RDW (11.7-14.4) % Plt Count (182-369) x10^3/uL MPV (9.4-12.3) fL Gran % (34.0-71.1) % Immature Gran % (Auto) (0.001-0.429) % Nucleat RBC Rel Count (0.00-0.2) % Eos # (Auto) (0.04-0.36) x10^3/uL Immature Gran # (Auto) (0.001-0.031) x10^3u/L Absolute Lymphs (auto) (1.18-3.74) x10^3/uL Absolute Monos (auto) (0.24-0.86) x10^3/uL Absolute Nucleated RBC (0.00-0.012) x10^3u/L Lymphocytes % (19.3-51.7) % Monocytes % (4.7-12.5) % Eosinophils % (0.7-5.8) % Basophils % (0.1-1.2) % Absolute Granulocytes (1.56-6.13) x10^3/uL Basophils # (0.01-0.08) x10^3/uL Sodium (135-145) mmol/L Potassium 3.6 (3.5-5.1) mmol/L Chloride (98-107) mmol/L Carbon Dioxide (22-30) mmol/L Anion Gap (5-15) MEQ/L BUN (7-17) mg/dL Creatinine (0.52-1.04) mg/dL Estimated GFR ML/MIN Glucose (74-106) mg/dL POC Glucometer 94 (74 to 106) mg/dL Calcium (8.4-10.2) mg/dL Magnesium 1.7 (1.6-2.3) mg/dL Total Bilirubin (0.2-1.3) mg/dL AST (14-36) U/L ALT (0-35) U/L Alkaline Phosphatase (38-126) U/L Serum Total Protein (6.3-8.2) g/dL Albumin (3.5-5.0) g/dL Slides for Path Review 07/29/24 Range/Units 11:33 WBC (3.98-10.04) x10^3/uL RBC (3.93-5.22) x10^6/uL Hgb (11.2-15.7) g/dL Hct (34.1-44.9) % MCV (79.4-94.8) fL MCH (25.6-32.2) pg MCHC (32.2-35.5) g/dL RDW (11.7-14.4) % Plt Count (182-369) x10^3/uL MPV (9.4-12.3) fL Gran % (34.0-71.1) % Immature Gran % (Auto) (0.001-0.429) % Nucleat RBC Rel Count (0.00-0.2) % Eos # (Auto) (0.04-0.36) x10^3/uL Immature Gran # (Auto) (0.001-0.031) x10^3u/L Absolute Lymphs (auto) (1.18-3.74) x10^3/uL Absolute Monos (auto) (0.24-0.86) x10^3/uL Absolute Nucleated RBC (0.00-0.012) x10^3u/L Lymphocytes % (19.3-51.7) % Monocytes % (4.7-12.5) % Eosinophils % (0.7-5.8) % Basophils % (0.1-1.2) % Absolute Granulocytes (1.56-6.13) x10^3/uL Basophils # (0.01-0.08) x10^3/uL Sodium (135-145) mmol/L Potassium (3.5-5.1) mmol/L Chloride (98-107) mmol/L Carbon Dioxide (22-30) mmol/L Anion Gap (5-15) MEQ/L BUN (7-17) mg/dL Creatinine (0.52-1.04) mg/dL Estimated GFR ML/MIN Glucose (74-106) mg/dL POC Glucometer 243 H (74 to 106) mg/dL Calcium (8.4-10.2) mg/dL Magnesium (1.6-2.3) mg/dL Total Bilirubin (0.2-1.3) mg/dL AST (14-36) U/L ALT (0-35) U/L Alkaline Phosphatase (38-126) U/L Serum Total Protein (6.3-8.2) g/dL Albumin (3.5-5.0) g/dL Slides for Path Review Radiology Exams: Radiology Procedures Category Date Time Status CHEST 1 VIEW (PORTABLE) Urgent Exams 07/28/24 08:19 Completed FOOT (MINIMUM 3 VIEWS) Urgent Exams 07/28/24 10:52 Completed Multi-Disciplinary Progress Notes: Multi-Disciplinary Progress Notes 07/29/24 14:13 Case Management Note by Krista Ortiz BIPAP INFO FAXED TO [facility] Initialized on 07/29/24 14:13 - END OF NOTE 07/29/24 13:21 Case Management Note by Krista Ortiz Addendum entered by Krista Ortiz 07/29/24 13:27: [facility] ADDED TO MED LIST- ORDERS REFAXED Original Note: [facility] ORDERS AND MED LIST FAXED TO [facility] Initialized on 07/29/24 13:21 - END OF NOTE 07/29/24 12:48 Case Management Note by Krista Ortiz PATIENT CONTINUES TO PLAN TO TRANSITION TO [facility] FOR CONT'D CARE. HER WILL PROVIDE TRANSPORT Initialized on 07/29/24 12:48 - END OF NOTE Assessment/Plan (1) Acute on chronic osteomyelitis Status: Acute Assessment & Plan: Slight drop in WBC then trending upwards. Likely stress reaction. Expect trend to decrease over following days. Orders currently remain unchanged. PICC placement Will await culture and sensitivity for infection control course. incision assessed and appears to progressing without significant complication. Dressing changed Pain control as prescribed to [facility] for 2 [facility]. will follow outpatient Code(s): M86.10 - OTHER ACUTE OSTEOMYELITIS, UNSPECIFIED SITE; M86.60 - OTHER CHRONIC OSTEOMYELITIS, UNSPECIFIED SITE (2) Gas gangrene Status: Resolved Code(s): A48.0 - GAS GANGRENE (3) Cellulitis of foot associated with diabetes mellitus Status: Acute Code(s): E11.628 - TYPE 2 DIABETES MELLITUS WITH OTHER SKIN COMPLICATIONS; L03.119 - CELLULITIS OF UNSPECIFIED PART OF LIMB (4) Diabetic foot ulcer Status: Chronic Code(s): E11.621 - TYPE 2 DIABETES MELLITUS WITH FOOT ULCER; L97.509 - NON-PRESSURE CHRONIC ULCER OTH PRT UNSP FOOT W UNSP SEVERITY (5) Foot abscess, left Status: Resolved Code(s): L02.612 - CUTANEOUS ABSCESS OF LEFT FOOT
[2024-07-30 08:33] VITALS: O2SAT 97
== END 2024-07-29 13:55 | DRG 474 ==
LOC: ED 20:55 → MED SURG 07-25 03:48 → OBSVTOIN 07-25 08:55
PROVIDERS: ADMIT Internal Medicine Nephrology; ATTEND Internal Medicine Nephrology
PROC: 0Q9M0ZZ Drainage of Left Tarsal, Open Approach (ICD-10-PCS; principal; 2024-07-25)
PROC: 0Y6N0Z0 Detachment at Left Foot, Complete, Open Approach (ICD-10-PCS; 2024-07-25)
PROC: 0KR Muscles, Replacement (ICD-10-PCS; 2024-07-25)
PROC: 05HY33Z Insertion of Infusion Device into Upper Vein, Percutaneous Approach (ICD-10-PCS; 2024-07-27)
DX: M86.172 Other acute osteomyelitis, left ankle and foot (principal); A48.0 Gas gangrene; L02.612 Cutaneous abscess of left foot; L03.116 Cellulitis of left lower limb; E11.52 Type 2 diabetes mellitus with diabetic peripheral angiopathy with gangrene; Z68.1 Body mass index [BMI] 19.9 or less, adult; M86.672 Other chronic osteomyelitis, left ankle and foot; D64.9 Anemia, unspecified; E11.628 Type 2 diabetes mellitus with other skin complications; E11.621 Type 2 diabetes mellitus with foot ulcer; L97.529 Non-pressure chronic ulcer of other part of left foot with unspecified severity; F41.9 Anxiety disorder, unspecified; I11.0 Hypertensive heart disease with heart failure; I50.9 Heart failure, unspecified; J44.9 Chronic obstructive pulmonary disease, unspecified; Z99.81 Dependence on supplemental oxygen; Z79.899 Other long term (current) drug therapy; I73.9 Peripheral vascular disease, unspecified; G62.9 Polyneuropathy, unspecified; R63.6 Underweight; Z89.511 Acquired absence of right leg below knee
CPT/HCPCS: 15738; 28005; 28800; 36415; 36430; 36569; 36573; 71045; 73630; 73700; 76937; 77001; 80053; 80202; 82550; 82607; 82728; 82746; 82947; 83036; 83540; 83550; 83605; 83735; 84132; 85014; 85018; 85025; 85027; 85610; 85730; 86850; 86900; 86901; 86922; 87040; 87070; 87075; 87077; 87116; 87205; 87206; 87254; 93005; 94640; 94762; 96365; 96366; 96374; 96375; 99221; 99284; P9016; Q3014; C1769; J1171; J1642; J1817; J2250; J3370; J7609; A9270-GY